=== PATIENT | female | born 1945 | race Caucasian/White ===

== ENCOUNTER → 2017-12-13 10:36 | Outpatient (CLI) | payer MEDICARE, SELFPAY ==
--- NOTE | 2017-12-13 10:39 | DI.RAD.S_ITS ---
PROCEDURE: XR ANKLE LT MIN 3V INDICATIONS: Left ankle pain/swelling TECHNIQUE: 3 views of the ankle were acquired. COMPARISON: None. 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 Near [id number] articulation is seen in this area, and there also is moderate hindfoot degenerative osteoarthritis best seen on the lateral view. There is a accessory ossicle or dominant old avulsion fragment is present at the inferior tip of the medial malleolus.. No suspicious bony lesions. Soft tissues: No tibiotalar joint effusion. Achilles tendon appears normal. 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 The avulsion fragment from the past inferior to the medial malleolus. A moderate degree of degenerative osteoarthritis is present at the tibiotalar joint and there is mild subluxation of the distal tibia medially across the talar dome likely due to ligamentous laxity. Dictated by: Rl Sommer M.D. on 12/13/2017 at 11:04 Approved by: Rl Sommer M.D. on 12/13/2017 at 11:06
== END ==
PROVIDERS: Family Provider Physician Assistant; PCP Physician Assistant; Visit Provider Physician Assistant
DX: M19.072 Primary osteoarthritis, left ankle and foot (principal); M25.572 Pain in left ankle and joints of left foot
CPT/HCPCS: 73610

== ENCOUNTER → 2018-01-22 10:23 | Outpatient (CLI) | payer MEDICARE, SELFPAY ==
[2018-01-22 12:39] LABS: Alanine Aminotransferase 24 IU/L (9-52); Albumin 4.3 g/dL (3.5-5.0); Albumin Globulin Ratio 1.2 (1.0-2.8); Alkaline Phosphatase 64 U/L (38-126); Aspartate Aminotransferase 30 IU/L (14-36); BUN Creatinine Ratio 28.3 (6-22); Bilirubin Total 0.4 mg/dL (0.2-1.3); Blood Urea Nitrogen 17 mg/dL (7-17); Calcium 10.1 mg/dL (8.4-10.2); Carbon Dioxide 33 mmol/L (22-32); Chloride 97 mmol/L (98-107); Estimated Glomerular Filt Rate > 60.0 mL/min (>60); Globulin 3.5 g/dL (1.7-4.1); Glucose 95 mg/dL (80-110); HEMOLYSIS < 15 (0-50); Potassium 4.1 mmol/L (3.4-5.1); Sodium 140 mmol/L (137-145); Total Protein 7.8 g/dL (6.3-8.2)
[2018-01-22 20:11] LABS: Creatinine Urine Random 38.9 mg/dL
[2018-01-22 20:16] LABS: Microalbumi Creatinin Ratio Ur 20.5 ug/mg CR (<30); Microalbumin Urine Random 0.8 mg/dL (0-1.6)
== END ==
PROVIDERS: Family Provider Physician Assistant; PCP Physician Assistant; Visit Provider Physician Assistant
DX: I10 Essential (primary) hypertension (principal); Z86.711 Personal history of pulmonary embolism
CPT/HCPCS: 36415; 80053; 82043; 82570

== ENCOUNTER → 2018-04-02 13:39 | Outpatient (CLI) | payer MEDICARE, SELFPAY ==
[2018-04-04 14:08] LABS: Fecal Immunochemical Test NOT DETECTED
== END ==
PROVIDERS: Family Provider Physician Assistant; PCP Physician Assistant; Visit Provider Physician Assistant
DX: Z12.11 Encounter for screening for malignant neoplasm of colon (principal)
CPT/HCPCS: 82274

== ENCOUNTER → 2018-10-25 08:37 | Outpatient (CLI) | payer MEDICARE, SELFPAY ==
--- NOTE | 2018-10-25 08:39 | DI.RAD.S_ITS ---
PROCEDURE: XR CHEST 2V INDICATIONS: cough TECHNIQUE: 2 views of the chest were acquired. COMPARISON: [facility], , CHEST 1 VIEW, 03/13/2017, 16:59. FINDINGS: Surgical changes and devices: None. Lungs and pleura: Lungs are clear. No pleural effusions or pneumothorax. Mediastinum: Mediastinal contours are normal. Heart size is normal. Bones and chest wall: No suspicious bony abnormalities. Soft tissues appear unremarkable. IMPRESSION: No acute cardiopulmonary disease process. Dictated by: Belen Colon MD, PhD on 10/25/2018 at 9:12 Approved by: Belen Colon MD, PhD on 10/25/2018 at 9:13
== END ==
PROVIDERS: Family Provider Physician Assistant; PCP Physician Assistant; Visit Provider Physician Assistant
DX: R05 Cough (principal)
CPT/HCPCS: 71046

== ENCOUNTER → 2018-12-11 08:29 | Outpatient (CLI) | payer MEDICARE, SELFPAY ==
--- NOTE | 2018-12-11 08:31 | DI.MG.S_ITS ---
BILATERAL DIGITAL SCREENING MAMMOGRAM 3D/2D WITH CAD: 12/11/2018 Comparison is made to exams dated: 10/06/2017 mammogram, 08/24/2016 mammogram, and 07/19/2015 mammogram - [facility]. The tissue of both breasts is heterogeneously dense. This may lower the sensitivity of mammography. Current study was also evaluated with a Computer Aided Detection (CAD) system. There are benign calcifications in both breasts. No significant masses, calcifications, or other findings are seen in either breast. There has been no significant interval change. IMPRESSION: There is no mammographic evidence of malignancy. A 1 year screening mammogram is recommended. This exam was interpreted at Station ID: [id number]. NOTE: For mammograms, a report in lay terms will be sent to the patient. Approximately 15% of breast malignancies will not be visualized mammographically. In the management of a palpable breast mass, a negative mammogram must not discourage biopsy of a clinically suspicious lesion. Electronically Signed By: Adán flannery/pari:12/11/2018 10:30:57 letter sent: Normal Exam ACR BI-RADS Category 2: Benign Finding(s) 3342F
== END ==
PROVIDERS: Family Provider Physician Assistant; PCP Physician Assistant; Visit Provider Physician Assistant
DX: Z12.31 Encounter for screening mammogram for malignant neoplasm of breast (principal)
CPT/HCPCS: 77063; 77067

== ENCOUNTER → 2019-01-21 13:11 | Outpatient (CLI) | payer MEDICARE, SELFPAY ==
--- NOTE | 2019-01-21 | DI.MRI.S_ITS ---
PROCEDURE: MR ANKLE LT WO CON INDICATIONS: LEFT ANKLE STRAIN TECHNIQUE: Noncontrast sagittal T1 spin echo and T2 fast spin echo with fat saturation, axial proton density fast spin echo and T2 fast spin echo with fat saturation, coronal T1 spin echo and T2 fast spin echo with fat saturation through the ankle/hindfoot. COMPARISON: None. FINDINGS: Image quality: Excellent. Bones and joints: No bone marrow contusions or fractures. No hindfoot coalitions. Severe tibiotalar joint degeneration with [id number] appearance, subchondral cystic change and sclerosis. Tibiotalar joint effusion. Medial structures: The posterior tibialis, flexor digitorum longus, and flexor hallucis longus tendons are intact. There is minimal fluid adjacent to the posterior tibialis tendon raising possibility of low-grade tenosynovitis. The posterior tibial neurovascular bundle appears normal within the tarsal tunnel, without extrinsic mass effect. The deep layer of the deltoid ligament not well seen probably indicating chronic sprain. The spring ligament components (superomedial calcaneonavicular, medioplantar oblique calcaneonavicular, and inferoplantar longitudinal ligaments) are intact. Lateral structures: Subcutaneous soft tissue edema overlying the lateral and medial malleolus. The anterior talofibular ligament is not visualized and likely ruptured. The calcaneofibular, and posterior talofibular ligaments appear intact. More superiorly, the anterior and posterior tibiofibular ligaments appear intact, as is the intermalleolar ligament. The tibiofibular syndesmosis is normal in width at 2 mm or less. The peroneus longus and brevis tendons demonstrate normal location and morphology. Adjacent bony peroneal tubercle and retrotrochlear prominence are normal in size. The sinus tarsi demonstrates normal fatty signal, without edema, fibrosis, or cyst formation. Visualized sinus tarsi components (cervical ligament, interosseous talocalcaneal ligament, roots of the inferior extensor retinaculum) appear normal. The calcaneonavicular and calcaneocuboid components of the bifurcate ligament appear intact. The dorsal calcaneocuboid ligament appears intact. Anterior structures: The tibialis anterior, extensor hallucis longus, and extensor digitorum longus tendons appear intact. The dorsal talonavicular ligament appears intact. Posterior and plantar structures: Achilles tendon is intact. Medial and lateral bands of the plantar fascia are of normal thickness. No abductor digiti quinti muscle atrophy to suggest Evans neuropathy. IMPRESSION: Rupture of the anterior talofibular ligament, technically age-indeterminate finding. Sprain of the deltoid ligament, with chronic appearance. Severe tibiotalar joint degeneration with associated effusion and full-thickness articular cartilage loss. Subchondral cystic changes and edema. Dictated by: Shaka Mayorga M.D. on 01/21/2019 at 14:23 Approved by: Shaka Mayorga M.D. on 01/21/2019 at 14:30
== END ==
PROVIDERS: Family Provider Physician Assistant; PCP Physician Assistant; Visit Provider Orthopaedic Surgery Foot and Ankle Surgery
DX: S93.422A Sprain of deltoid ligament of left ankle, initial encounter (principal); S93.492A Sprain of other ligament of left ankle, initial encounter; M19.072 Primary osteoarthritis, left ankle and foot; M25.472 Effusion, left ankle; X58.XXXA Exposure to other specified factors, initial encounter
CPT/HCPCS: 73721

== ENCOUNTER → 2019-06-17 09:24 | Outpatient (CLI) | payer MEDICARE, SELFPAY ==
[2019-06-17 10:39] LABS: Add Manual Diff / Slide Review NO; Basophils Absolute Auto 100 /uL (0-100); Eosinophils Absolute Auto 300 /uL (0-450); Eosinophils Percent Auto 3.4 % (2-4); Hematocrit 37.7 % (36-46); Hemoglobin 13.2 g/dL (12.0-16.0); Lymphocytes Absolute Auto 1800 /uL (1100-4500); Mean Corpuscular HGB Conc 34.9 % (30-36); Mean Corpuscular Hemoglobin 31.3 PG (26-34); Mean Corpuscular Volume 89.5 fL (80-100); Monocytes Absolute Auto 500 /uL (0-900); Monocytes Percent Auto 6.4 % (3-14); Neutrophils Absolute Auto 4900 /uL (1500-7000); Neutrophils Percent Auto 65.2 % (50-75); Platelet Count 233 X10^3/uL (150-400); Red Blood Cell Count 4.21 X10^6/uL (4.0-5.2); Red Cell Distribution Width 12.9 % (11.6-14.8); White Blood Cell Count 7.5 X10^3/uL (4.5-11.0)
[2019-06-17 10:53] LABS: Carbon Dioxide 26 mmol/L (22-32); Chloride 98 mmol/L (98-107); HEMOLYSIS < 15 (0-50); Potassium 3.9 mmol/L (3.4-5.1); Sodium 134 mmol/L (137-145)
== END ==
PROVIDERS: PCP Physician Assistant; Visit Provider Orthopaedic Surgery Foot and Ankle Surgery
DX: Z01.818 Encounter for other preprocedural examination (principal); M19.071 Primary osteoarthritis, right ankle and foot
CPT/HCPCS: 36415; 80051; 85025; 93005

== ENCOUNTER 2019-07-11 06:02 | Day surgery (SDC) | payer MEDICARE, SELFPAY ==
[2019-07-07 09:23] VITALS: BMI 19.5
[2019-07-11] VITALS (15 sets, daily range): BP systolic 107–170; BP diastolic 62–92; PULSE 82–93; RESP 13–20; TEMP 36.3–36.9; O2SAT 91–97; BMI 18.9
--- NOTE | 2019-07-11 | DI.RAD.S_ITS ---
PROCEDURE: XR ANKLE LT 2V INDICATIONS: LEFT ANKLE FUSION TECHNIQUE: 4 intraoperative fluoroscopic images of the ankle were acquired. COMPARISON: [facility], CR, XR ANKLE LT MIN 3V, 12/13/2017, 10:38. FINDINGS: ORIF of the distal tibia and talus. The plates and screws project in expected location. Prior proximal fibular shaft osteotomy. IMPRESSION: Satisfactory appearance of the left ankle joint ORIF. Dictated by: Jovany Logan M.D. on 07/11/2019 at 11:20 Approved by: Jovany Logan M.D. on 07/11/2019 at 11:23
[2019-07-11] MEDS: GABAPENTIN 300 MG CAPSULE PO (07:10)
[2019-07-11] MEDS: LACTATED RINGERS 1,000 ML 42 ML IV ×3 (07:10→12:38)
[2019-07-11] MEDS: ACETAMINOPHEN 325 MG TABLET 975 MG PO ×2 (07:10→20:23)
--- NOTE | 2019-07-11 07:21 | PM.PREOP ---
Pre-operative Note Interval Note History & Physical reviewed/Exam performed by Physician: Yes Changes to H&P: No
[2019-07-11] MEDS: CLINDAMYCIN 900 MG/50 ML PIGGYBACK 50 MG IV ×2 (07:48→16:20)
--- NOTE | 2019-07-11 07:48 | SUR.PREOP ---
Block start time [0735] . Monitoring initiated and maintained throughout procedure. Oxygen and medications given per anesthesiologist instructions. Patient remained stable throughout procedure, no adverse reactions noted. Block end time [0747].
--- NOTE | 2019-07-11 07:49 | SUR.PREOP ---
Block start time [0735] . Monitoring initiated and maintained throughout procedure. Patient remained stable throughout procedure, no adverse reactions noted. Block end time [0748].
--- NOTE | 2019-07-11 08:26 | SUR.OPER ---
Supine on padded OR bed, head on pillow, arms secured on padded arm boards at <90 degrees abduction, legs uncrossed, safety belt at thigh, tape over blanket over right leg. bump under left hip, bump under left leg
[2019-07-11] MEDS: BUPIVACAINE 0.25% W/ EPI 30 ML VIAL INJ (10:37)
--- NOTE | 2019-07-11 11:20 | P.OP_ITS ---
Operative Date/Time/Diagnoses Date of procedure: 07/11/19 Time of procedure: 08:20 Pre-op diagnosis: Arthritis ankle left M 19. 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 She had a partial fibula acne as part of the jaw reconstruction in 2017 she has failed conservative treatment with bracing and injections and rocker sole shoes. She has been indicated for an ankle fusion. The risks and benefits of the procedure have been discussed with the patient even opportunity to ask questions. The risks of surgery include but are not limited to infection, malunion, nonunion, persistence of pain, damage to nerves and blood vessels, posttraumatic arthritis, DVT, PE, cardiopulmonary complications and . The patient expressed a thorough understanding of the risks and benefits of surgery and has elected to proceed. Consent was signed in the office. The patient does have a remote history of a pulmonary embolism after a surgery. She took warfarin for a time but has not taken this in years. She states she was unable to give Lovenox injections to herself and would prefer an oral option. She has had a previous reaction to cephalosporins and therefore will have clindamycin as a preoperative antibiotic. She understands the recovery period will be 8-10 weeks of nonweightbearing followed by progressive weight-bearing. A surgical garment assembly supervisor, physician manufacturing assistant was utilized in this procedure and was crucial for participation in the positioning, retraction, exposure and hardware placement and closure during the procedure. The primary surgeon Dr. Gibson was present and participated in 100% of the procedure from positioning, exposure, hardware placement and closure. Surgeon: Marcie Gibson Nail Professional: Aviva Kenney Anesthesia Type: General, Peripheral nerve block and Local Operative Notes Findings: Severe degenerative changes left tibiotalar joint with eburnated bone distal tibia and talar dome Closure Type: primary Specimen(s): none sent Prosthetic devices, grafts, tissues, transplants, or devices: Arthrex anterior ankle fusion plate and screws. 6.7 cannulated screw Estimated Blood Loss (mL): 10 Blood products transfused: none Tourniquet time (min): 120 Procedure in detail: Patient was seen in the preoperative area the site of surgery was marked and informed consent confirmed. The patient underwent a regional block with the anesthesia team for postoperative pain control. The patient was then brought back to the operating room. Patient was positioned supine on the operative table all bony prominences were well padded. An SCD was placed on the contralateral lower extremity. A well-padded thigh tourniquet was placed on the operative extremity. And general anesthetic was administered. Ward catheter was placed for the duration of the surgery and removed prior to discontinuation of anesthesia. An ipsilateral thigh bump was placed. The left lower extremity was prepped and draped in the standard sterile fashion. A formal time-out procedure was performed confirming the patient's side and site of surgery and administration of appropriate preoperative antibiotics. All were in agreement. Informed consent was accounted for. Implants were in the room and accounted for. All were in agreement. Attention was turned to the patient's left lower extremity. The surgical site was inspected and the anterior incision was marked out on the leg centered over the ankle joint and extending approximately 15 cm in length 10 above the ankle joint line 5 below. Esmarch was used for exsanguination the tourniquet was elevated to 250 mm of mercury. The stayed elevated for a 120 minutes and then was released and not elevated again. Skin was incised superficially the tenotomy scissors were used for superficial dissection. The distal aspect of the incision the superficial peroneal nerve was identified and retracted laterally. Next the extensor retinaculum was incised with the deep knife. This was done over the EHL. The EHL and EDL interval was then explored the EDL was retracted laterally and the EHL medially with the neurovascular bundle. Dissection was taken down to bone and the [employer]'s were used for retraction. The tibiotalar joint was exposed and cleared off to the a talar neck and edge of the tn joint. Steinmann pins were placed into the tibia and talus and the ankle distractor was placed on to distract the joint. Curettes and osteotomes were used to debride the articular surfaces. These were found to be arthritic and eburnated. Once this was completed the lamina spreaders were placed to further open up the joint and continue with the debridement. Next the 4 0 oval bur was used to prepare the bony surfaces followed by irrigation and then a 3 0 drill to drill multiple drill holes in the tibial and talar surfaces to prepare the bone and a osteotome was then used to fish scale. Next attention was turned to the knee to obtain the autograft. Gerdy's tubercle and the tibial tubercle were marked out on the left proximal tibia and an incision made between these areas. This was a 2 cm incision soft tissues were retracted. The anterior compartment fascia was incised and retracted posteriorly. A 6 mm osteotome was used to make a sq bone window. Large curette was then used to harvest the bone graft. An x-ray was used to confirm this was well away from the joint line intraoperatively. Once this was completed the bone window was replaced and the wound was closed in a layered fashion after irrigation. Local anesthetic was placed. The autograft was placed into a container and set aside on the back table. Attention then returned back to the ankle for the arthrodesis the autograft was placed along the talus and tibia to enhance the fusion. Following this the ankle was positioned into neutral dorsiflexion and slight external rotation with the 2nd toe aligned with the tibial crest this was pinned using a large K-wire and care was taken to bring the talus slightly anterior as this had been posterior subluxed in the patient previously. The positioning was checked on ltiplanar fluoroscopy and found to be appropriate. Next a Arthrex anterior plate was fit to the tibial talar surface. There was a anterior prominence of the distal tibia and this was shaved down using the osteotomes. The standard 4 hole anterior plate was too large for this patient to out a bur short talar neck therefore decision was made to utilize the 2 hole anterior plate. This fit very well on this patient's anatomy. Therefore the left side 2 hole plate was selected this was placed into the talus and tibia using the BB tacks. Next a nonlocking screw was placed through a talar hole followed by a locking screw. Next a nonlocking was screw was placed Ecentric clean the oblong hole the shaft to create compression. And prior to doing this the BB tacks were removed. The 5.5 lag screw was then placed through the plate. Next the nonlocking screw in the talar hole was replaced with a locking screw as this was loose. However there was something wrong with the locking mechanism of the plate into different locking screws and re- drilling with the locking guide were tried through this hole without the screws engaging the locking mechanism. Therefore this screw was abandoned and the decision was made to add a 6 7 cannulated lag screw for additional talar fixation. This was done through a stab incision medially and a 40 mm partially threaded cannulated screw was placed without difficulty. Next the rest of the plate was filled with locking screws in appropriate positions. Stability of the arthrodesis was excellent and final positioning was confirmed showing excellent apposition and neutral positioning of the tibiotalar fusion. There was no evidence of a subtalar penetration. The tourniquet was released and hemostasis was achieved. The a deep tissues and extensor retinaculum were closed with 0 Vicryl suture. Subcutaneous 2 0 suture was used for 0 suture Monocryl was used subcutaneously followed by 3 O nylon suture. A sterile dressing with Xeroform gauze Webril bulky Griffith dressing and a stirrup and posterior splint were placed on the leg. A Tegaderm and Xeroform dressing over skin closure with Vicryl and nylon sutures was placed for the proximal tibial b one graft site. The patient was woken from anesthesia and taken to the recovery room in good condition. There no immediate complications from this procedure. All counts were correct. Complications: none Post-operative Condition: stable Disposition: PACU Plan for aftercare: Patient will be admitted to the floor she will discharge home on postop day 1 or 2 when pain is controlled. Nonweightbearing left lower extremity. Elevate above the heart level. Follow-up in clinic in 1-2 weeks as scheduled For conversion to cast. Prescriptions are on the patient's chart. Patient will start oral Xarelto for DVT prophylaxis on postoperative day 1. She will have 2 doses of clindamycin postoperatively while in the hospital.
--- NOTE | 2019-07-11 11:35 | SUR.PHASEI ---
Report recived from Piper Moulton RN and then gave her the pt. and so she received report from me again.
[2019-07-11] MEDS: KETOROLAC 30 MG/ML VIAL IV ×2 (12:44→18:26)
--- NOTE | 2019-07-11 14:22 | PT.IIE ---
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) DDD (degenerative disc disease), lumbar (Chronic Unknown) Essential hypertension (Chronic 10/12/10) Gastroesophageal reflux disease (Chronic 06/24/15) History of pulmonary embolus (PE) (Resolved) Hx of pulmonary embolus (Resolved 03/2017) Hypertension (Chronic Unknown) Irritable bowel syndrome (Chronic Unknown) Low back pain (Chronic Unknown) Squamous cell carcinoma of mandible (Resolved) Physical Therapy Inpatient Evaluation/Re-Eval M1 PT/OT-IP Prior Functional Status Start: 07/11/19 15:36 Freq: NEEDED Status: Active Protocol: Document 07/11/19 14:22 AB (Rec: 07/11/19 15:55 AB [id number]) Medical Review Prior Functional Status Medical History Reviewed Yes Communication able to make needs known Mobility and Gait pt stated that she is independent with all mobilities and ambulation without AD Social History Household Members spouse Living Arrangements House Number of Floors (Floors) Two Floors Number of Stairs To Enter/Railing? pt stays on main level of the house has no steps to enter Home Environment Standard Height Toilet,High Toilet,Walk in Shower,Built-In Shower Seat Home Equipment Front Wheel Walker,Straight Cane,Crutches,Hand Held Shower Employment Status Retired Additional Social History Comment pt has a knee scooter, adjustable bed M2 PT-IP Current Condition Start: 07/11/19 15:36 Freq: NEEDED Status: Active Protocol: Document 07/11/19 14:22 AB (Rec: 07/11/19 15:55 AB [id number]) Physical Therapy Current Condition Current Condition Evaluation Date 07/11/19 Treatment Diagnosis s/p L ankle arthrodesis w/L prox tibia bone graft; difficulty in walking Onset Date 07/11/2019 Precautions Brace LLE on soft cast Weight Bearing Status Weight Bearing Status Non-Weight Bearing Allowed Weight Bearing Amount (enter % LLE NWB or #) (%) M3 PT-IP Subjective Start: 07/11/19 15:36 Freq: NEEDED Status: Active Protocol: Document 07/11/19 14:22 AB (Rec: 07/11/19 15:55 AB [id number]) Subjective Physical Therapy Visit Type Type Initial Evaluation Visit Start Time 14:22 Visit Stop Time 15:12 Total Visit Minutes 50 Number of SOCIAL ECONOMIST Visits 0 Physical Therapy Visit Comments Patient Comments Pt agreeable to do PT Therapy Pain Assessment Pain Present Pain Present Denied Pain M4 PT-IP Mobility and Gait Start: 07/11/19 15:36 Freq: NEEDED Status: Active Protocol: Document 07/11/19 14:22 AB (Rec: 07/11/19 15:55 AB [id number]) PT-Bed Mobility Assessment Supine to Sit Supine to Sit Standby Assistance Scooting Scooting to Edge of Bed Standby Assistance PT-Transfer Assessment Sit to and From Stand Sit to and from Stand Contact Guard Assistance,1 Person Assistance,Use of Upper Extremities Equipment Transfer Assistive Device Gait Belt,Front Wheeled Walker Orthotic/Prosthetic Devices or Brace: No Transfers Transfer Destination Toilet Transfer Technique ambulated using FWW Transfer Ability Level of Assist Contact Guard Assistance, Minimal Assistance,1 Person Assistance,Use of Upper Extremities Comments Mobility Comments BP: 144/84 pt requested to use the toilet. completed supine to sit SBA. c/o feeling oozy. BP: 166/98. completed sit to stand CGA. pt ambulated to the toilet using FWW NWB LLE CGA to min A ~ 15 ft. required cues for techniques and to maintain NWB on LLE. completed sit to stand from the toilet CGA and ambulated to the sink using FWW CGA to min A. pt was able to maintain standing leaning against the counter NWB LLE while completing handwasing. instructed pt to ambulate to the chair and completed using FWW CGA to min A. positioned pt on the chair. call light and table placed within reach. asked pt to have her spouse bring her knee scooter tomorrow for training and agreed. Gait Assessment Gait Gait Assistance Required: Contact Guard Assist,Minimum Assistance Distance (Feet) 15 Able to Maintain Weight Bearing Status Yes During Gait Assistive Devices Assistive Device Gait Belt,Front Wheeled Walker Orthotic/Prosthetic Devices or Brace: Yes Factors Limiting Gait Function Factors Limiting Gait Function Decreased Activity Tolerance, Decreased Strength,Limited Range of Motion,Poor Balance Comments Gait Comments pls refer to mobility section for details PT-Balance Assessment Sitting Balance and Reactions Static Sitting Balance Ability Good Dynamic Sitting Balance Ability Good Standing Balance and Reactions Static Standing Balance Ability Fair Dynamic Standing Balance Ability Fair Device Used FWW M5 PT-IP Objective Assessments Start: 07/11/19 15:36 Freq: NEEDED Status: Active Protocol: Document 07/11/19 14:22 AB (Rec: 07/11/19 15:55 AB [id number]) Orientation Orientation/Cognition Level of Alertness Alert Orientation Name,Age,Birthday,Place, Situation Language Function Ability No Deficits Noted Safety Awareness Understands Safety Issues Memory Description No Deficits Noted Gross Range of Motion Lower Extremity ROM Impairments L ankle on soft cast and ROM not tested Strength Lower Extremity Strength Hip 4-/5 Knee 4-/5 Comments Strength Comments L ankle not tested Coordination Assessment Gross Coordination Gross Coordination WNL Sensation Assessment Sensation Gross Sensation Left LE Impaired Sensation Description Numbness Muscle Tone Muscle Tone WNL Yes M6 PT-IP Treatment Start: 07/11/19 15:36 Freq: NEEDED Status: Active Protocol: Document 07/11/19 14:22 AB (Rec: 07/11/19 15:55 AB [id number]) Physical Therapy Treatment Education Education Provided Precautions,Weight Bearing Status,Safety M7 PT-IP Assessment and Plan Start: 07/11/19 15:36 Freq: NEEDED Status: Active Protocol: Document 07/11/19 14:22 AB (Rec: 07/11/19 15:55 AB [id number]) PT Summary Assessment and Plan Potential Rehabilitation Potential Good Status of Condition at Evaluation Stable Summary Impairments Pain,ROM,Strength,Balance, Coordination,Sensation,Tone, Cognition,Bed Mobility, Transfers,Gait,Activity Tolerance Assessment Summary pt requiring CGA to min A with mobility using FWW. will assess safety with use of knee scooter tomorrow when family brings pt's knee scooter in. informed pt regarding possible use of w/c for long distance mobility and agreed. pt will have her spouse to assist her at home. Goals Bed Mobility Goal Independent Transfer Goal Independent,Front Wheeled Walker Gait Goal Independent,Front Wheel Walker Gait Distance 50 Other Goals Mod I with use of knee scooter ~ 100 ft Days to Meet Goals 5 Frequency of Treatment Frequency Of Treatment Twice a Day Treatment Plan Physical Therapy Treatment Plan Bed Mobility Training,Transfer Training,Gait Training, Therapeutic Exercise,Balance Retraining,Post Op Education, Discharge Planning,Hot or Cold Pack,Neuromuscular Re-ed, Coordination Retraining,Manual Therapy Other Recommendations and Next Treatment ambulation using FWW/knee Focus scooter; caregiver training when appropriate Recommendations To Nursing Amount of Assist Needed 1 Person Assist Discharge Recommendations PT Discharge Recommendations Home with Assistance, Outpatient PT Transportation Needs at Discharge Private Vehicle
--- NOTE | 2019-07-11 15:29 | PC.NURSE ---
Patient up to chair with PT. Patient denies pain at this time. IV infusing, site is CDI, leg is elevated, call light in reach. Patient denies further needs at this time.
--- NOTE | 2019-07-11 18:24 | P.PN_ITS ---
Subjective Subjective Date Patient Seen: 07/11/19 Time Patient Seen: 18:25 Interval history: Postop day 0 left ankle fusion Doing well sitting at bedside chair. Pain controlled. Starting to feel little bit of tingling around her toes. Exam Vital Signs (past 8 hours): - 07/11/19 10:48 07/11/19 10:53 07/11/19 10:54 Temperature 97.8 F 97.8 F Pulse Rate 83 82 83 Respiratory Rate 16 18 16 Blood Pressure 108/68 107/66 108/68 Pulse Oximetry 94 92 94 07/11/19 10:58 07/11/19 11:03 07/11/19 11:11 Temperature Pulse Rate 83 85 84 Respiratory Rate 20 14 20 Blood Pressure 112/70 112/70 114/72 Pulse Oximetry 91 91 91 07/11/19 11:22 07/11/19 11:36 07/11/19 11:48 Temperature 98.1 F 98.0 F Pulse Rate 84 85 86 Respiratory Rate 17 20 13 Blood Pressure 111/62 122/72 135/76 Pulse Oximetry 93 92 91 07/11/19 12:20 07/11/19 12:40 07/11/19 13:40 Temperature 98.5 F 98.5 F 98.0 F Pulse Rate 85 93 H 85 Respiratory Rate 14 14 Blood Pressure 128/66 136/67 141/74 H Pulse Oximetry 94 93 95 07/11/19 14:40 Temperature Pulse Rate 93 H Respiratory Rate Blood Pressure 156/92 H Pulse Oximetry 97 Oxygen Delivery Method Room Air Oxygen Flow Rate 0 Narrative Exam Narrative: Left lower extremity splint in place. Toes warm and well perfused. Does endorse some sensation with touching her toes today. Not wiggling them yet. Assessment & Plan Post-op Postoperative Procedures: Procedures Operation Date: 07/11/19 07:45 Actual Procedures Side Surgeon Ankle Fusion Left Marcie Gibson MD Postop day 0 left ankle fusion. Will elevate above the heart level to help with pain and swelling Plan nonweightbearing left lower extremity. Patient has walker and a knee scooter at home. Will finish 2 doses postop antibiotics Will start DVT prophylaxis with Xarelto on postop day 1.--prescription for Xarelto is on chart.--will use SCDs while in the hospital Had a block for pain control Is getting scheduled IV Toradol. Will have a few days of oral Toradol for prescription at discharge.--prescription is on chart. Patient given instr uctions not to take other anti-inflammatories while taking the Toradol -pain medication prescription for oxycodone on chart Prescription for Zofran on chart Will follow up in [facility] with Dr. Gibson as scheduled Plan discharge Sunday morning postop day 1 as long as pain is controlled. Did discuss this can be variable with the block wearing off. Patient instructed to take some pain medication prior to block wearing off to help ease this transition.-discussed vitamin D and calcium to help with bone healing. Quality VTE Deep Vein Thrombosis/Pulmonary Embolism Present on Admission: No
[2019-07-11] MEDS: DOCUSATE 100 MG CAPSULE PO (20:23)
[2019-07-11] MEDS: carvediloL 25 MG TABLET PO (20:23)
[2019-07-12] MEDS: CLINDAMYCIN 900 MG/50 ML PIGGYBACK 50 MG IV (00:32)
[2019-07-12] MEDS: KETOROLAC 30 MG/ML VIAL IV ×2 (00:33→05:43)
[2019-07-12 00:50] VITALS: BP 140/83; PULSE 65; RESP 16; TEMP 36.5; O2SAT 93
[2019-07-12] MEDS: ONDANSETRON 4 MG ODT PO (01:01)
[2019-07-12 04:05] VITALS: BP 130/75; PULSE 68; RESP 16; TEMP 36.7; O2SAT 95
[2019-07-12] MEDS: MAG HYDROX/ALUM/SIMETH 30 ML UDC PO (05:37)
[2019-07-12 07:30] VITALS: BP 139/86; PULSE 65; RESP 16; TEMP 36.7; O2SAT 95
--- NOTE | 2019-07-12 08:29 | PM.PNPO.1 ---
Subjective Subjective Date Patient Seen: 07/12/19 Time Patient Seen: 08:30 Interval history: She is doing great. 0 pain. She has been up and ambulating independently. Exam Vital Signs (past 8 hours): - 07/12/19 00:50 07/12/19 04:05 Temperature 97.7 F 98.0 F Pulse Rate 65 68 Respiratory Rate 16 16 Blood Pressure 140/83 130/75 Pulse Oximetry 93 95 Oxygen Delivery Method Room Air Oxygen Flow Rate 0 Const Orientation: alert and oriented x3 Extrem Other: Left leg splint intact. Intact sensation and good capillary refill in toes. He has a wiggles toes. Assessment & Plan Post-op Postoperative Procedures: Procedures Operation Date: 07/11/19 07:45 Actual Procedures Side Surgeon p Ankle Fusion Left Marcie Gibson MD she is doing very well. Discharged home today. I changed her prescription to tramadol as oxycodone makes her nauseated. Quality VTE Deep Vein Thrombosis/Pulmonary Embolism Present on Admission: No
[2019-07-12] MEDS: ACETAMINOPHEN 325 MG TABLET 975 MG PO (09:02)
[2019-07-12] MEDS: DOCUSATE 100 MG CAPSULE PO (09:02)
[2019-07-12] MEDS: RIVAROXABAN 10 MG TABLET PO (09:03)
[2019-07-12] MEDS: carvediloL 25 MG TABLET PO (09:05)
[2019-07-12] MEDS: AMLODIPINE 5 MG TABLET PO (09:05)
[2019-07-12] MEDS: LOSARTAN 50 MG TABLET PO (09:05)
--- NOTE | 2019-07-12 09:16 | PT.IPTN ---
Current Diagnoses Primary osteoarthritis, unspecified ankle and foot (07/11/19) Surgery Performed Operation Date: 07/11/19 07:45 Actual Procedures p Ankle Fusion(Left) - Marcie Gibson MD Physical Therapy Treatment Note M2 PT-IP Current Condition Start: 07/11/19 15:36 Freq: NEEDED Status: Active Protocol: Document 07/11/19 14:22 AB (Rec: 07/11/19 15:55 AB [id number]) Physical Therapy Current Condition Current Condition Evaluation Date 07/11/19 Treatment Diagnosis s/p L ankle arthrodesis w/L prox tibia bone graft; difficulty in walking Onset Date 07/11/2019 Precautions Brace LLE on soft cast Weight Bearing Status Weight Bearing Status Non-Weight Bearing Allowed Weight Bearing Amount (enter % LLE NWB or #) (%) M3 PT-IP Subjective Start: 07/11/19 15:36 Freq: NEEDED Status: Active Protocol: Document 07/12/19 09:00 KS (Rec: 07/12/19 09:31 KS [id number]) Subjective Physical Therapy Visit Type Type Treatment Note Visit Start Time 09:00 Visit Stop Time 09:16 Total Visit Minutes 16 Number of PHOTOGRAPHY INTERN Visits 1 Physical Therapy Visit Comments Patient Comments Pt agreeable to do PT Therapy Pain Assessment Pain Present Pain Present Denied Pain M4 PT-IP Mobility and Gait Start: 07/11/19 15:36 Freq: NEEDED Status: Active Protocol: Document 07/12/19 09:00 KS (Rec: 07/12/19 09:31 KS [id number]) PT-Bed Mobility Assessment Scooting Scooting to Edge of Bed Standby Assistance PT-Transfer Assessment Sit to and From Stand Sit to and from Stand Standby Assistance,Use of Upper Extremities Equipment Transfer Assistive Device Gait Belt,Front Wheeled Walker Orthotic/Prosthetic Devices or Brace: No Transfers Transfer Destination Bed Transfer Technique ambulated using FWW Transfer Ability Level of Assist Standby Assistance,Use of Upper Extremities Comments Mobility Comments Pt was exiting bathroom bathroom upon arrival from therapy. I for sit<>stand from toilet. Pt then ambulated w/ FWW to EOB. SBA for stand<>sit w/ FWW and NWB LLE. Discussed use of trike at home, pt did not bring in, but notes she was practicing use before surgery. Discussed safe use of trike and options for protecting incision site below L knee. SBA for sit<>stand w/ FWW and use of UE. Pt then ambulated ~50 ft w/ FWW and returned to sitting EOB SBA for stand<>sit w/ cues to bring FWW all the way to bed. Pt left sitting EOB, w/ all needs in reach and nursing notified of pt position. Gait Assessment Gait Gait Assistance Required: Standby Assistance,Contact Guard Assist,1 Person Assist Distance (Feet) 50 Able to Maintain Weight Bearing Status Yes During Gait Assistive Devices Assistive Device Gait Belt,Front Wheeled Walker Orthotic/Prosthetic Devices or Brace: Yes Factors Limiting Gait Function Factors Limiting Gait Function Decreased Activity Tolerance, Decreased Strength,Limited Range of Motion,Poor Balance Comments Gait Comments Pt ambulated ~50 ft w/ FWW and NWB LLE. Pt used correct technique w/ FWW using arms to lift body and swing leg forward. Pt noted that it was fatiguing, but she had covered more distance than needed while in her home. Pt states she feels confident in her ability to use trike at home and it will be easier. Prior to sitting, pt performed SLS on RLE w/ 1 finger on each side of FWW for balance x20 sec. PT-Balance Assessment Sitting Balance and Reactions Static Sitting Balance Ability Good Dynamic Sitting Balance Ability Good Standing Balance and Reactions Static Standing Balance Ability Fair Dynamic Standing Balance Ability Fair Device Used FWW M5 PT-IP Objective Assessments Start: 07/11/19 15:36 Freq: NEEDED Status: Active Protocol: Document 07/11/19 14:22 AB (Rec: 07/11/19 15:55 AB [id number]) Orientation Orientation/Cognition Level of Alertness Alert Orientation Name,Age,Birthday,Place, Situation Language Function Ability No Deficits Noted Safety Awareness Understands Safety Issues Memory Description No Deficits Noted Gross Range of Motion Lower Extremity ROM Impairments L ankle on soft cast and ROM not tested Strength Lower Extremity Strength Hip 4-/5 Knee 4-/5 Comments Strength Comments L ankle not tested Coordination Assessment Gross Coordination Gross Coordination WNL Sensation Assessment Sensation Gross Sensation Left LE Impaired Sensation Description Numbness Muscle Tone Muscle Tone WNL Yes M6 PT-IP Treatment Start: 07/11/19 15:36 Freq: NEEDED Status: Active Protocol: Document 07/12/19 09:00 KS (Rec: 07/12/19 09:31 KS [id number]) Physical Therapy Treatment Education Education Provided Precautions,Weight Bearing Status,Safety Other Treatments Other Treatment Performed Discussed safe use of trike at home, and options to add extra cushion to knee pad of trike if needed. Pt stated that if the trike is uncomfortable on incision, she will use FWW for short distances. M7 PT-IP Assessment and Plan Start: 07/11/19 15:36 Freq: NEEDED Status: Active Protocol: Document 07/12/19 09:00 KS (Rec: 07/12/19 09:31 KS [id number]) PT Summary Assessment and Plan Potential Rehabilitation Potential Good Status of Condition at Evaluation Stable Summary Impairments ROM,Strength,Balance, Coordination,Sensation,Tone, Cognition,Bed Mobility, Transfers,Gait,Activity Tolerance Assessment Summary Pt was SBA for all moblity and transfers. SBA to CGA for ambulating w/ FWW NWB LLE. No cues required for proper use of FWW while ambulating. Pt able to cover more than necessary distance that will need to be covered at home w/ FWW w/ appropriate level of fatigue and no loss of balance . Min cues to bring FWW all the way back to bed when sitting. Discussed how to safely use trike at home. Pt will also have assistance from spouse. Goals Bed Mobility Goal Independent Transfer Goal Independent,Front Wheeled Walker Gait Goal Independent,Front Wheel Walker Gait Distance 50 Other Goals Mod I with use of knee scooter ~ 100 ft Days to Meet Goals 5 Treatment Plan Physical Therapy Treatment Plan Bed Mobility Training,Transfer Training,Gait Training, Therapeutic Exercise,Balance Retraining,Post Op Education, Discharge Planning,Hot or Cold Pack,Neuromuscular Re-ed, Coordination Retraining,Manual Therapy Other Recommendations and Next Treatment ambulation using FWW/knee Focus scooter; caregiver training when appropriate Recommendations To Nursing Amount of Assist Needed 1 Person Assist Discharge Recommendations PT Discharge Recommendations Home with Assistance, Outpatient PT Transportation Needs at Discharge Private Vehicle
--- NOTE | 2019-07-12 11:29 | PC.NURSE ---
Discharge instructions and medications reviewed with patient and her . They states understanding and have no further questions or concerns at this time. IV removed intact. Dressings/splint to left lower extremity remain in place and intact. Wiggling toes, pink with +CMS. Patient has follow up appointment with Dr. Gibson scheduled. Patient instructed to call orthopedic's office with questions or concerns, or to seek emergency care for emergency. Patient escorted out via wheelchair with all belongings by TICKER INSTALLER to be discharged to home with her .
--- NOTE | 2019-07-12 14:11 | CM.DANOTE ---
DCP Brief Assessment Note Patient is a 74 year old female who was admitted as Outpt Bed on 07/11/19 for Left Ankle Surg. Pt has [employer] and [employer] for insurance and her PCP is Nemo BROWN. EMR was reviewed. Per MD, pt is medically stable to d/c home today after PT. Per PT, recommending safe d/c home and no concerns at this time. SW attempted to meet bedside with pt and per RN pt had been anxious to get home and provided transport home today with no concerns. Plan: Patient discharged home today via spouse POV and no SW needs at this time. MARGUERITE Harrington
== END 2019-07-12 10:40 | disposition home or self-care (01) ==
LOC: OR 06:06 → AC 06:11
PROVIDERS: PCP Physician Assistant; Visit Provider Orthopaedic Surgery Foot and Ankle Surgery
PROC: (CPT 27870; principal; 2019-07-11 07:45)
DX: M19.072 Primary osteoarthritis, left ankle and foot (principal); Z98.890 Other specified postprocedural states
CPT/HCPCS: 27870; 20900; 64450; 73600; 76000; 97116; 97161; 97535; J1100; J1885; J2405; J2704

== ENCOUNTER → 2020-01-12 15:37 | Outpatient (CLI) | payer MEDICARE, SELFPAY ==
[2019-07-11 11:50] VITALS: BMI 18.9
== END ==
PROVIDERS: PCP Registered Nurse Diabetes Educator; Referring Provider Physician Assistant; Visit Provider Physician Assistant
DX: I10 Essential (primary) hypertension (principal)

== ENCOUNTER → 2020-01-16 06:50 | Outpatient (CLI) | payer MEDICARE, SELFPAY ==
[2019-07-11 11:50] VITALS: BMI 18.9
[2020-01-16 08:32] LABS: Alanine Aminotransferase 15 IU/L (<35); Albumin 4.6 g/dL (3.5-5.0); Albumin Globulin Ratio 1.5 (1.0-2.8); Alkaline Phosphatase 70 U/L (38-126); Aspartate Aminotransferase 27 IU/L (14-36); BUN Creatinine Ratio 34.7 (6-22); Bilirubin Total 0.7 mg/dL (0.2-1.3); Blood Urea Nitrogen 17 mg/dL (7-17); Calcium 10.3 mg/dL (8.4-10.2); Carbon Dioxide 27 mmol/L (22-32); Chloride 102 mmol/L (98-107); Estimated Glomerular Filt Rate > 60.0 mL/min (>60); Globulin 3.1 g/dL (1.7-4.1); Glucose 97 mg/dL (80-110); HEMOLYSIS < 15 (0-50); Potassium 4.3 mmol/L (3.4-5.1); Sodium 136 mmol/L (137-145); Total Protein 7.7 g/dL (6.3-8.2)
[2020-01-16 08:35] LABS: Creatinine Urine Random 23.6 mg/dL
[2020-01-16 08:39] LABS: Microalbumi Creatinin Ratio Ur 97.4 ug/mg CR (<30); Microalbumin Urine Random 2.3 mg/dL (0-1.6)
== END ==
PROVIDERS: PCP Registered Nurse Diabetes Educator; Referring Provider Physician Assistant; Visit Provider Physician Assistant
DX: I10 Essential (primary) hypertension (principal)
CPT/HCPCS: 36415; 80053; 82043; 82570

== ENCOUNTER → 2020-01-29 16:42 | Outpatient (CLI) | payer MEDICARE, SELFPAY ==
[2019-07-11 11:50] VITALS: BMI 18.9
== END ==
PROVIDERS: PCP Registered Nurse Diabetes Educator; Visit Provider Registered Nurse Diabetes Educator
DX: R30.0 Dysuria (principal)
CPT/HCPCS: 87077; 87086; 87186

== ENCOUNTER → 2020-02-11 11:40 | Outpatient (CLI) | payer MEDICARE, SELFPAY ==
[2019-07-11 11:50] VITALS: BMI 18.9
--- NOTE | 2020-02-11 12:00 | DI.MG.S_ITS ---
Patient Name: CHARLI HALEY date: 1945 Sex: F Attending Physician: Mika Indications: Date: 02/11/2020 11:54 At the request of: IZABELLA HAINES Procedure: MM screening mammo BI BILATERAL DIGITAL SCREENING MAMMOGRAM 3D/2D WITH CAD: 02/11/2020 CLINICAL: Routine screening. Comparison is made to exams dated: 12/11/2018 mammogram, 10/06/2017 mammogram, and 08/24/2016 mammogram - [facility]. The tissue of both breasts is heterogeneously dense. This may lower the sensitivity of mammography. Current study was also evaluated with a Computer Aided Detection (CAD) system. There are benign calcifications in both breasts. There also are benign vascular calcifications in both breasts. No significant masses, calcifications, or other findings are seen in either breast. There has been no significant interval change. IMPRESSION: BENIGN There is no mammographic evidence of malignancy. A 1 year screening mammogram is recommended. This exam was interpreted at Station ID: [id number]. NOTE: For mammograms, a report in lay terms will be sent to the patient. Approximately 15% of breast malignancies will not be visualized mammographically. In the management of a palpable breast mass, a negative mammogram must not discourage biopsy of a clinically suspicious lesion. Electronically Signed By: Radha powell/pari:02/11/2020 12:31:37 letter sent: Normal Exam ACR BI-RADS Category 2: Benign Finding(s) 3342F Continued Report - Page 2 of 2 Patient Name: CHARLI HALEY date: 1945 Sex: F Attending Physician: Mika Indications: Date: 02/11/2020 11:54 At the request of: IZABELLA HAINES Procedure: MM screening mammo BI
== END ==
PROVIDERS: PCP Registered Nurse Diabetes Educator; Referring Provider Registered Nurse Diabetes Educator; Visit Provider Registered Nurse Diabetes Educator
DX: Z12.31 Encounter for screening mammogram for malignant neoplasm of breast (principal)
CPT/HCPCS: 77063; 77067

== ENCOUNTER → 2020-02-12 09:15 | Outpatient (CLI) | payer MEDICARE, SELFPAY ==
[2019-07-11 11:50] VITALS: BMI 18.9
== END ==
PROVIDERS: PCP Registered Nurse Diabetes Educator; Visit Provider Registered Nurse Diabetes Educator
DX: R39.15 Urgency of urination (principal)
CPT/HCPCS: 87077; 87086; 87186

== ENCOUNTER → 2020-04-06 08:19 | Outpatient (CLI) | payer MEDICARE, SELFPAY ==
[2019-07-11 11:50] VITALS: BMI 18.9
[2020-04-07 16:08] LABS: Fecal Immunochemical Test Negative (Negative)
== END ==
PROVIDERS: PCP Registered Nurse Diabetes Educator; Referring Provider Registered Nurse Diabetes Educator; Visit Provider Registered Nurse Diabetes Educator
DX: Z00.00 Encounter for general adult medical examination without abnormal findings (principal)
CPT/HCPCS: 82274

== ENCOUNTER → 2021-01-28 07:01 | Outpatient (CLI) | payer MEDICARE, SELFPAY ==
[2019-07-11 11:50] VITALS: BMI 18.9
[2021-01-28 08:43] LABS: Hematocrit 39.8 % (36-46); Hemoglobin 13.4 g/dL (12.0-16.0); Mean Corpuscular HGB Conc 33.6 % (30-36); Mean Corpuscular Volume 92.2 fL (80-100); Platelet Count 228 X10^3/uL (150-400); Red Blood Cell Count 4.32 X10^6/uL (4.0-5.2); Red Cell Distribution Width 13.3 % (11.6-14.8); White Blood Cell Count 5.1 X10^3/uL (4.5-11.0)
[2021-01-28 08:56] LABS: RBC Morphology Normal Morphology
[2021-01-28 09:01] LABS: Alanine Aminotransferase 13 IU/L (<35); Albumin 4.4 g/dL (3.5-5.0); Albumin Globulin Ratio 1.4 (1.0-2.8); Alkaline Phosphatase 60 U/L (38-126); Aspartate Aminotransferase 26 IU/L (14-36); BUN Creatinine Ratio 30.4 (6-22); Bilirubin Total 0.7 mg/dL (0.2-1.3); Blood Urea Nitrogen 17 mg/dL (7-17); Calcium 9.8 mg/dL (8.4-10.2); Carbon Dioxide 28 mmol/L (22-32); Chloride 101 mmol/L (98-107); Cholesterol 212 mg/dL (140-199); Estimated Glomerular Filt Rate > 60.0 mL/min (>60); Globulin 3.1 g/dL (1.7-4.1); Glucose 97 mg/dL (80-110); HDL Cholesterol 87 mg/dL (40-60); HEMOLYSIS < 15 (0-50); LDL Cholesterol Calculated 114 mg/dL (<100); Potassium 4.4 mmol/L (3.4-5.1); Sodium 137 mmol/L (137-145); Total Protein 7.5 g/dL (6.3-8.2); Triglycerides 54 mg/dL (35-150)
[2021-01-28 09:13] LABS: Neutrophils Absolute Manual 3060 /uL (3000-5900); Total Cells Counted 100
[2021-01-28 10:06] LABS: Creatinine Urine Random 40.2 mg/dL
[2021-01-28 10:09] LABS: Microalbumi Creatinin Ratio Ur 32.3 ug/mg CR (<30); Microalbumin Urine Random 1.3 mg/dL (0-1.6)
== END ==
PROVIDERS: PCP Registered Nurse Diabetes Educator; Referring Provider Registered Nurse Diabetes Educator; Visit Provider Registered Nurse Diabetes Educator
DX: I10 Essential (primary) hypertension (principal)
CPT/HCPCS: 36415; 80053; 80061; 82043; 82570; 85025

== ENCOUNTER → 2021-02-01 08:36 | Outpatient (CLI) | payer MEDICARE, SELFPAY ==
[2019-07-11 11:50] VITALS: BMI 18.9
[2021-02-02 09:36] LABS: Fecal Immunochemical Test Negative (Negative)
== END ==
PROVIDERS: PCP Registered Nurse Diabetes Educator; Referring Provider Registered Nurse Diabetes Educator; Visit Provider Registered Nurse Diabetes Educator
DX: Z11.3 Encounter for screening for infections with a predominantly sexual mode of transmission (principal)
CPT/HCPCS: 82274

== ENCOUNTER → 2021-04-28 07:20 | Outpatient (CLI) | payer MEDICARE, SELFPAY ==
[2019-07-11 11:50] VITALS: BMI 18.9
[2021-04-28 08:23] LABS: Add Manual Diff / Slide Review NO; Basophils Absolute Auto 0 /uL (0-100); Basophils Percent Auto 0.8 % (0-2); Eosinophils Absolute Auto 200 /uL (0-450); Eosinophils Percent Auto 3.3 % (2-4); Hematocrit 36.4 % (36-46); Hemoglobin 12.6 g/dL (12.0-16.0); Lymphocytes Absolute Auto 1600 /uL (1100-4500); Lymphocytes Percent Auto 28.4 % (25-40); Mean Corpuscular HGB Conc 34.7 % (30-36); Mean Corpuscular Hemoglobin 31.6 PG (26-34); Mean Corpuscular Volume 90.9 fL (80-100); Monocytes Absolute Auto 500 /uL (0-900); Monocytes Percent Auto 7.9 % (3-14); Neutrophils Absolute Auto 3400 /uL (1500-7000); Neutrophils Percent Auto 59.6 % (50-75); Platelet Count 224 X10^3/uL (150-400); Red Cell Distribution Width 12.6 % (11.6-14.8); White Blood Cell Count 5.7 X10^3/uL (4.5-11.0)
[2021-04-28 08:56] LABS: Microalbumin Urine Random 1.6 mg/dL (0-1.6)
[2021-04-28 08:59] LABS: Creatinine Urine Random 23.7 mg/dL; Microalbumi Creatinin Ratio Ur 67.5 ug/mg CR (<30)
== END ==
PROVIDERS: PCP Registered Nurse Diabetes Educator; Referring Provider Registered Nurse Diabetes Educator; Visit Provider Registered Nurse Diabetes Educator
DX: R79.89 Other specified abnormal findings of blood chemistry (principal); R80.9 Proteinuria, unspecified
CPT/HCPCS: 36415; 82043; 82570; 85025

== ENCOUNTER → 2021-05-17 11:37 | Outpatient (CLI) | payer MEDICARE, SELFPAY ==
[2019-07-11 11:50] VITALS: BMI 18.9
--- NOTE | 2021-05-17 11:39 | DI.MG.S_ITS ---
BILATERAL DIGITAL SCREENING MAMMOGRAM 3D/2D WITH CAD: 05/17/2021 CLINICAL: Routine screening. Comparison is made to exams dated: 02/11/2020 mammogram, 12/11/2018 mammogram, and 10/06/2017 mammogram - [facility]. The tissue of both breasts is heterogeneously dense. This may lower the sensitivity of mammography. Current study was also evaluated with a Computer Aided Detection (CAD) system. There are benign calcifications in both breasts. There also are benign vascular calcifications in both breasts. No significant masses, calcifications, or other findings are seen in either breast. There has been no significant interval change. IMPRESSION: BENIGN There is no mammographic evidence of malignancy. A 1 year screening mammogram is recommended. This exam was interpreted at Station ID: [id number]. NOTE: For mammograms, a report in lay terms will be sent to the patient. Approximately 15% of breast malignancies will not be visualized mammographically. In the management of a palpable breast mass, a negative mammogram must not discourage biopsy of a clinically suspicious lesion. Electronically Signed By: Adán flannery/pari:05/17/2021 13:25:12 letter sent: Normal Exam ACR BI-RADS Category 2: Benign Finding(s) 3342F
== END ==
PROVIDERS: PCP Registered Nurse Diabetes Educator; Referring Provider Registered Nurse Diabetes Educator; Visit Provider Registered Nurse Diabetes Educator
DX: Z12.31 Encounter for screening mammogram for malignant neoplasm of breast (principal)
CPT/HCPCS: 77063; 77067

== ENCOUNTER → 2021-06-21 14:04 | Outpatient (CLI) | payer MEDICARE, SELFPAY ==
[2019-07-11 11:50] VITALS: BMI 18.9
== END ==
PROVIDERS: PCP Registered Nurse Diabetes Educator; Referring Provider Registered Nurse Diabetes Educator; Visit Provider Registered Nurse Diabetes Educator
DX: Z78.0 Asymptomatic menopausal state (principal); Z13.820 Encounter for screening for osteoporosis; Z82.62 Family history of osteoporosis
CPT/HCPCS: 77080

== ENCOUNTER → 2021-07-21 07:08 | Outpatient (CLI) | payer MEDICARE, SELFPAY ==
[2019-07-11 11:50] VITALS: BMI 18.9
[2021-07-21 07:36] LABS: COVID19 -Nasal RAPID Negative (Negative)
== END ==
PROVIDERS: PCP Registered Nurse Diabetes Educator; Visit Provider Nurse Practitioner Family
DX: Z20.822 Contact with and (suspected) exposure to COVID-19 (principal)
CPT/HCPCS: 87635

== ENCOUNTER → 2021-08-12 06:55 | Outpatient (CLI) | payer MEDICARE, SELFPAY ==
[2019-07-11 11:50] VITALS: BMI 18.9
[2021-08-12 09:02] LABS: BUN Creatinine Ratio 29.1 (6-22); Blood Urea Nitrogen 16 mg/dL (7-17); Calcium 9.8 mg/dL (8.4-10.2); Carbon Dioxide 28 mmol/L (22-32); Chloride 103 mmol/L (98-107); Estimated Glomerular Filt Rate > 60.0 mL/min (>60); Glucose 104 mg/dL (80-110); HEMOLYSIS < 15 (0-50); Potassium 4.1 mmol/L (3.4-5.1); Sodium 138 mmol/L (137-145)
[2021-08-12 10:36] LABS: Creatinine Urine Random 54.9 mg/dL
[2021-08-12 10:38] LABS: Microalbumi Creatinin Ratio Ur 36.4 ug/mg CR (<30)
== END ==
PROVIDERS: PCP Registered Nurse Diabetes Educator; Referring Provider Registered Nurse Diabetes Educator; Visit Provider Registered Nurse Diabetes Educator
DX: I10 Essential (primary) hypertension (principal); R80.9 Proteinuria, unspecified
CPT/HCPCS: 36415; 80048; 82043; 82570

== ENCOUNTER → 2022-02-27 16:02 | Outpatient (CLI) | payer MEDICARE, SELFPAY ==
[2019-07-11 11:50] VITALS: BMI 18.9
--- NOTE | 2022-02-27 16:04 | DI.ECHO.S_ITS ---
[facility]+ [facility] +---------+ : : [address] : [place] [address] : : : : [id number] : : : : Phone: [phone]+ Echocardiogram Report + + :Name: CHARLI HALEY Study Date: 02/27/2022 Height: 60 in : :[facility] ReadingLocation: Weight: 100 lb : : Gender: Female BSA: 1.4 m2 : :: 1945 Age: 77 yrs BP: 184/93 mmHg: :Reason For Study: Murmur : :Ordering Physician: YANCY, : :IZABELLA Performed By: Shubham Reno : :Referring: IZABELLA HAINES : + + Interpretation Summary The ejection fraction is estimated to be 60-65%. There is mild tricuspid regurgitation. The right ventricular systolic pressure is estimated to be at least 30 mmHg based on an estimated right atrial pressure of 3 mm Hg. Procedure: A two-dimensional transthoracic echocardiogram with color flow and Doppler was performed. The study quality was technically adequate. There is no prior echocardiogram noted for this patient. Left Ventricle: The left ventricle is normal in size and wall thickness. Left ventricular systolic function is normal. The ejection fraction is estimated to be 60-65%. There are no focal wall motion abnormalities. Diastolic function could not be accurately assessed due to contradictory data. Right Ventricle: The right ventricle is normal in size and function. Atria: The left atrium is mildly dilated. Right atrial size is normal. The interatrial septum grossly appears intact with no obvious evidence for an atrial septal defect. Mitral Valve: The mitral valve leaflets appear mildly thickened, but open well. There is no mitral regurgitation noted. Aortic Valve: The aortic valve is normal in structure and function. No aortic regurgitation is present. Tricuspid Valve: The tricuspid valve is normal in structure and function. There is mild tricuspid regurgitation. The right ventricular systolic pressure is estimated to be at least 30 mmHg based on an estimated right atrial pressure of 3 mm Hg. Pulmonic Valve: The pulmonic valve is normal in structure and function. There is a trace or physiologic amount of pulmonic regurgitation. Great Vessels: The aortic root is normal size. The dimensions of the ascending aorta are normal. The IVC is of normal diameter and collapses greater than 50% with a sniff. This suggests a low right atrial pressure of 3 mm Hg. Pericardium/ Pleura There is no pericardial effusion. There is no pleural effusion. MMode/2D Measurements & Calculations LVIDd: 4.1 cm LVOT diam: 1.9 cm LVIDs: 2.8 cm Ao root diam: 2.7 cm FS: 31.7 % asc Aorta Diam: 2.9 cm IVSd: 0.70 cm LVPWd: 0.70 cm LV maynard. diameter/BSA (cm/m^2): 2.9 LV sys. diameter/BSA (cm/m^2): 2.0 LA dimension: 2.4 cm RA long axis: 3.9 cm LA A2 area: 18.9 cm2 LA A4 area: 18.5 cm2 LA length (vol): 5.4 cm LA vol: 55.1 ml LA vol index: 39.6 ml/m2 TAPSE_phl: 2.2 cm Doppler Measurements & Calculations Ao V2 max: 149.0 cm/sec LVOT Max Franklyn: 125.0 cm/sec Ao V2 mean: 104.0 cm/sec LV V1 max P.3 mmHg Ao max P.0 mmHg LV V1 VTI: 26.7 cm Ao mean P.0 mmHg ANABEL(I,D): 2.3 cm2 Ao V2 VTI: 32.5 cm ANABEL(V,D): 2.4 cm2 sev ratio: 0.82 ANABEL indexed to BSA (cm^2/m^2): 1.7 MV E max franklyn: 72.8 cm/sec TR max franklyn: 261.0 cm/sec MV A max franklyn: 88.8 cm/sec TR max P.2 mmHg MV E/A: 0.82 Med Peak E' Franklyn: 7.1 cm/sec E/E' med: 10.3 Lat Peak E' Franklyn: 9.2 cm/sec E/E' lat: 7.9 E/e' average: 9.1 MV dec time: 0.33 sec SV(LVOT): 75.7 ml AV VR_phl: 0.84 ANABEL(VTI)/BSA_phl: 1.7 MV P1/2t-pr_phl: 95.0 msec Reading Physician:01:33 PM
== END ==
PROVIDERS: PCP Registered Nurse Diabetes Educator; Referring Provider Registered Nurse Diabetes Educator; Visit Provider Registered Nurse Diabetes Educator
DX: R01.1 Cardiac murmur, unspecified (principal); I07.1 Rheumatic tricuspid insufficiency
CPT/HCPCS: 93306

== ENCOUNTER → 2022-04-11 10:01 | Outpatient (CLI) | payer MEDICARE, SELFPAY ==
[2019-07-11 11:50] VITALS: BMI 18.9
--- NOTE | 2022-04-11 | DI.CT.S_ITS ---
PROCEDURE: CT LE RT WO CON INDICATIONS: primary osteoarthritis, right ankle and foot TECHNIQUE: Noncontrast 1-1.5 mm axial sections acquired from above the tibiotalar joint to the bottom of the calcaneus, with coronal and sagittal reformats. COMPARISON: [facility], CT, LOWER EXTREMITY WO CONTRAST, 01/17/2017, 12:01. FINDINGS: Image quality: Excellent. Bones: Severe tibiotalar joint osteoarthritic changes are seen with near complete loss of joint space, extensive subchondral sclerosis and cystic changes and prominent marginal osteophyte formation. Underlying osteochondral injuries involving lateral weight-bearing portion of talar dome are likely present. Small osteochondral injuries involving adjacent distal tibial plafond is also noted. Moderate osteoarthritic changes are seen in rest of the right foot with joint space narrowing, subchondral sclerosis and small marginal osteophyte formation. No acute fracture or dislocation. No suspicious bony lesions. No CT evidence of metatarsal stress fractures. Soft tissues: There is small tibiotalar and subtalar joint effusion, no gross calcified loose bodies are seen. Achilles tendon is intact. Plantar fascia is intact. No abnormal soft tissue calcifications. No gross full-thickness extensor or flexor tendon ruptures. IMPRESSION: 1. 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 Osteochondral injuries are noted involving talar dome and adjacent distal tibial plafond. 2. Efba-to-khbsxhoa osteoarthritic changes in rest of the right foot. No acute fracture or dislocation. No suspicious bony lesion. 3. Small joint effusion, no loose bodies. No gross abnormal soft tissue calcifications. No full-thickness tendon rupture. Dictated by: Cedric Blevins M.D. on 04/11/2022 at 11:13 Approved by: Cedric Blevins M.D. on 04/11/2022 at 11:17
== END ==
PROVIDERS: PCP Registered Nurse Diabetes Educator; Referring Provider Orthopaedic Surgery Foot and Ankle Surgery; Visit Provider Orthopaedic Surgery Foot and Ankle Surgery
DX: M19.071 Primary osteoarthritis, right ankle and foot (principal); M25.474 Effusion, right foot
CPT/HCPCS: 73700

== ENCOUNTER → 2022-04-12 07:08 | Outpatient (CLI) | payer MEDICARE, SELFPAY ==
[2019-07-11 11:50] VITALS: BMI 18.9
[2022-04-12 08:00] LABS: Add Manual Diff / Slide Review NO; Basophils Absolute Auto 0 /uL (0-100); Basophils Percent Auto 0.5 % (0-2); Eosinophils Absolute Auto 200 /uL (0-450); Eosinophils Percent Auto 2.2 % (2-4); Hematocrit 35.5 % (36-46); Hemoglobin 12.2 g/dL (12.0-16.0); Lymphocytes Absolute Auto 1100 /uL (1100-4500); Lymphocytes Percent Auto 14.4 % (25-40); Mean Corpuscular HGB Conc 34.2 % (30-36); Mean Corpuscular Hemoglobin 30.7 PG (26-34); Mean Corpuscular Volume 89.7 fL (80-100); Monocytes Absolute Auto 400 /uL (0-900); Monocytes Percent Auto 5.3 % (3-14); Neutrophils Absolute Auto 6100 /uL (1500-7000); Neutrophils Percent Auto 77.6 % (50-75); Platelet Count 243 X10^3/uL (150-400); Red Blood Cell Count 3.96 X10^6/uL (4.0-5.2); Red Cell Distribution Width 13.1 % (11.6-14.8); White Blood Cell Count 7.9 X10^3/uL (4.5-11.0)
[2022-04-12 08:24] LABS: Alanine Aminotransferase 17 IU/L (<35); Albumin 4.1 g/dL (3.5-5.0); Albumin Globulin Ratio 1.1 (1.0-2.8); Alkaline Phosphatase 81 U/L (38-126); Aspartate Aminotransferase 23 IU/L (14-36); BUN Creatinine Ratio 33.3 (6-22); Bilirubin Total 0.6 mg/dL (0.2-1.3); Blood Urea Nitrogen 17 mg/dL (7-17); Calcium 9.6 mg/dL (8.4-10.2); Carbon Dioxide 23 mmol/L (22-32); Chloride 104 mmol/L (98-107); Estimated Glomerular Filt Rate > 60 mL/min (>60); Globulin 3.8 g/dL (1.7-4.1); Glucose 135 mg/dL (80-110); HEMOLYSIS 15 (0-50); Potassium 3.9 mmol/L (3.4-5.1); Sodium 139 mmol/L (137-145); Total Protein 7.9 g/dL (6.3-8.2)
[2022-04-12 10:35] LABS: Hemoglobin A1C% w Est Avg Glu 5.3 % (4.0-6.0)
== END ==
PROVIDERS: PCP Registered Nurse Diabetes Educator; Referring Provider Orthopaedic Surgery Foot and Ankle Surgery; Visit Provider Orthopaedic Surgery Foot and Ankle Surgery
DX: Z01.812 Encounter for preprocedural laboratory examination (principal); R73.9 Hyperglycemia, unspecified; Z01.818 Encounter for other preprocedural examination
CPT/HCPCS: 36415; 80053; 83036; 85025

== ENCOUNTER → 2022-06-01 | Outpatient (CLI) | payer MEDICARE, SELFPAY ==
[2022-04-13 10:41] VITALS: BMI 18.9
--- NOTE | 2022-06-01 13:32 | DI.MG.S_ITS ---
BILATERAL DIGITAL SCREENING MAMMOGRAM 3D/2D WITH CAD: 06/01/2022 CLINICAL: Routine screening. Comparison is made to exams dated: 05/17/2021 mammogram, 02/11/2020 mammogram, and 12/11/2018 mammogram - [facility]. Both breasts are heterogeneously dense, which may obscure small masses (category c / 51-75% glandular tissue). Current study was also evaluated with a Computer Aided Detection (CAD) system. There are benign calcifications in both breasts. There also are benign vascular calcifications in both breasts. No significant masses, calcifications, or other findings are seen in either breast. There has been no significant interval change. IMPRESSION: BENIGN There is no mammographic evidence of malignancy. A 1 year screening mammogram is recommended. Based on the Tyrer Cuzick model (a risk assessment model) the patient's lifetime risk is 3.5% and her 10 year risk is 0.0%. According to the ACR, ACS, and NCCN guidelines, an annual breast MRI exam along with mammogram is recommended if the patient's lifetime risk is 20% or greater. This exam was interpreted at Station ID: [id number]. NOTE: For mammograms, a report in lay terms will be sent to the patient. Approximately 15% of breast malignancies will not be visualized mammographically. In the management of a palpable breast mass, a negative mammogram must not discourage biopsy of a clinically suspicious lesion. Electronically Signed By: Srini Christianson M.D., jr/pari:06/01/2022 14:58:48 letter sent: Normal Exam ACR BI-RADS Category 2: Benign Finding(s) 3342F
== END ==
PROVIDERS: PCP Registered Nurse Diabetes Educator; Referring Provider Registered Nurse Diabetes Educator; Visit Provider Registered Nurse Diabetes Educator
DX: Z12.31 Encounter for screening mammogram for malignant neoplasm of breast (principal)
CPT/HCPCS: 77063; 77067

== ENCOUNTER → 2022-06-07 10:54 | Outpatient (CLI) | payer MEDICARE, SELFPAY ==
[2022-04-13 10:41] VITALS: BMI 18.9
[2022-06-07 11:36] LABS: COVID19 -Nasal RAPID Negative (Negative)
== END ==
PROVIDERS: PCP Registered Nurse Diabetes Educator; Referring Provider Orthopaedic Surgery Foot and Ankle Surgery; Visit Provider Orthopaedic Surgery Foot and Ankle Surgery
DX: Z20.822 Contact with and (suspected) exposure to COVID-19 (principal)
CPT/HCPCS: 87635; C9803

== ENCOUNTER 2022-06-09 06:26 | Day surgery (SDC) | payer MEDICARE, SELFPAY ==
[2022-04-13 10:41] VITALS: BMI 18.9
[2022-06-06 08:24] VITALS: BMI 19.1
[2022-06-09] VITALS (11 sets, daily range): BP systolic 112–180; BP diastolic 56–89; PULSE 22–89; RESP 16–24; TEMP 36.2–36.8; O2SAT 92–100; BMI 19.1
--- NOTE | 2022-06-09 | DI.RAD.S_ITS ---
PROCEDURE: XR ANKLE RT 2V INDICATIONS: TOTAL ANKLE TECHNIQUE: Multiple spot fluoroscopic images of the ankle. COMPARISON: [facility], CT, CT LE RT WO CON, 04/11/2022, 10:08. [facility], CR, XR ANKLE 3 VIEWS WEIGHT BEARING BILATERAL, 12/28/2021, 10:22. FINDINGS: Intraoperative spot fluoroscopic images demonstrate mortise joint arthrodesis with hardware components in expected positions. A medial distal tibial plate screw construct is present. IMPRESSION: Status post mortise joint arthrodesis with expected hardware positioning. Approved by: Bill Raygoza M.D. on 06/09/2022 at 13:12
[2022-06-09] MEDS: LACTATED RINGERS 1,000 ML 42 ML IV ×2 (06:44→08:45)
--- NOTE | 2022-06-09 07:22 | PM.PREOP ---
Pre-operative Note COVID-19 COVID-19 status: Negative Interval Note History & Physical reviewed/Exam performed by Physician: Yes Changes to H&P: No
--- NOTE | 2022-06-09 07:22 | SUR.OPER ---
Supine on padded OR bed, head on pillow, arms secured on padded arm boards at <90 degrees abduction, legs uncrossed, safety belt at thigh, tape over blanket over lower legs. Right left supported on bath blankets, which are secured with tape. Left leg secured with cloth tape with blanket to protect skin.
[2022-06-09] MEDS: CEFAZOLIN 2 GM/100 ML PREMIX 100 ML IV (08:10)
[2022-06-09] MEDS: BUPIVACAINE 0.5% W/ EPI (PF) 30 ML VIAL INJ (08:50)
--- NOTE | 2022-06-09 12:10 | SUR.PHASEI ---
1125: Handoff to MARYANNE Bustillos for rest break. 1145: Report received, will resume care.
--- NOTE | 2022-06-09 12:18 | SUR.PHASEI ---
Addendum entered by Anais Ang R.N. 06/09/22 12:19: Update given to spouse Original Note: 1218: Pt recovering well, A&Ox4, block to right leg effective, can bend knee, denies pain.
[2022-06-09] MEDS: ACETAMINOPHEN 325 MG TABLET PO (12:33)
--- NOTE | 2022-06-09 12:36 | SUR.PHASEII ---
1230: Pt ready for phase 2. Report given to Devaughn Bustillos with time allowed for questions. Will handoff care now.
--- NOTE | 2022-06-09 14:40 | PM.OP.1 ---
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 Total ankle arthroplasty right CPT code 59418 2. Gastroc recession right- 22849-52 3. Prophylactic treatment plating right tibia, medial malleolus CPT code 30829 Number 22 modifier Procedures performed with a 22 modifier due to the extremely small size of this patient's ankle taking the absolute smallest implants and required a gastroc recession and prophylactic plating of the medial malleolus--culminating in this surgery took longer than the typical total ankle arthroplasty and required meticulous care to technique given the small size of the patient's ankle and the exposure and hike careful use and placement of the implants and to avoid fracture a prominence. Same procedure as scheduled: Yes Indications: The patient is a 77-year-old female with end-stage arthritis of the right ankle. She has a contralateral ankle fusion. She has been indicated for a total ankle arthroplasty to allow a more normal gait preserved range of motion and treat her in stage arthritic condition. She has a tight gastroc and has been indicated for possible gastroc recession and associated ligament balancing prophylactic for fracture fixation along with her ankle arthroplasty. The risks and benefits of the procedure have been discussed with the patient and given the opportunity to ask questions. The risks of surgery include but are not limited to infection, fracture, malunion, nonunion, persistence of pain, damage to nerves and blood vessels, posttraumatic arthritis hardware, implant complication, need for additional procedures, DVT, PE, cardiopulmonary complications and . The patient expressed a thorough understanding of the risks and benefits of surgery and has elected to proceed. Consent was signed in the office. During the operation, the services of a physician surgical physician assistant were medically indicated and necessary to provide the exposure of the operative site for the surgical procedure and to maintain the limb in a proper position to carry out the operation safely and efficiently. Without a qualified senior sales assistant being present this would extended the operative procedure and made the procedure technically more difficult to perform. Surgeon: Marcie Gibson Business Systems Analyst: Amanda Saenz Anesthesia Type: General, Peripheral nerve block and Local Operative Notes Findings: End-stage arthritis varus pattern right ankle. Intraoperative the patient's ankle was extremely diminutive. She was sized for the smallest possibly a component skin even this left a thin medial malleolus less than 9 mm concerning for risk for stress fracture and therefore was indicated for prophylactic fixation with a medial antiglide plate. Additionally for the varus arthritis a deltoid peel was completed. Gastroc contracture on examination under anesthesia. This was treated with a gastroc recession Closure Type: primary Specimen(s): none sent Prosthetic devices, grafts, tissues, transplants, or devices: Lesly TalAris flat cut talar dome size 0 right Lesly Talaris tibia tray size 0 XL Polyethylene size 00x 9 mm right Synthes 5 hole 1/3 tubular plate 24 mm 3.5 cortical screw 28 mm 3.5 cortical screw Estimated Blood Loss (mL): 30 Blood products transfused: none Tourniquet time (min): 126 Procedure in detail: Patient was seen in the preoperative area and the site of surgery was marked informed consent confirmed. Final questions were answered. The patient was also seen by the anesthesiologist and a peripheral nerve block was placed for postoperative pain control. The patient was brought back to the operating room by the anesthesia team and positioned supine on operative table. All bony problems well padded. A well-padded thigh tourniquet was placed on the upper thigh. An ipsilateral thigh bump was placed. A bump was placed on the calf with a heel hang free. The operative lower extremity was then prepped and draped in the standard sterile fashion. A formal time-out procedure was performed confirming the patient site of surgery and administration of preoperative antibiotics which was 2 g of Ancef. Implants were in the room accounted for. All were in agreement. Attention was turned to the operative lower extremity an Esmarch bandage was used for exsanguination the tourniquet elevated the thigh to 250 mm of mercury. The initial nonsterile tourniquet fails and was not working and this was removed and a sterile tourniquet was placed and then elevated. Gastroc recession-- An examination under anesthesia was completed demonstrated a gastroc contracture with approximately 5? of dorsiflexion with the knee extended and 20? of dorsiflexion with the knee flexed therefore decision was made for a gastroc recession. The leg was bent in the posterior medial calf was exposed. A incision was marked approximately 15 cm above the heel posterior medially at the edge of the gastroc musculature. This was taken down through the skin subcutaneous tissue making a 3 cm incision. The gastroc fascia was encountered. A care was taken to protect the sural nerve. The fascia was exposed. It was released from medial to lateral while the ankle was in dorsiflexion creating a 2 cm lengthening once this was completed the wound was irrigated and closed in layered fashion with 4-0 Monocryl and 3-0 nylon suture. Postoperative examination demonstrated symmetric ankle dorsiflexion 20? in knee extension and knee flexion. Total ankle arthroplasty-- A standard anterior approach to the ankle was drawn out over the leg approximately 12 cm in length and 1 cm lateral to the tibial crest extended longitudinally bisecting the tibiotalar joint and talonavicular joint. This was taken down through the skin and subcutaneous tissues with care taken to isolate and protect the superficial peroneal nerve branch. Next the extensor retinaculum was opened and tagged with an 0 Vicryl for later repair. The EHL tendon sheath was opened and the EHL and neurovascular bundle were retracted laterally and the tibialis anterior was kept into its sheath and retracted medially. This brought us down directly on the anterior tibia. Dissection was taken all the way to the talonavicular joint to expose the talus. The capsule was divided and retracted. The joint demonstrated end-stage tibiotalar arthritis with large anterior distal tibial spurs and talar spurring. Overall size of the ankle was noted to be quite small. The Bovie cautery and elevators and scalpel were used to remove the periosteum along the anterior tibia and expose the joint. retractors were used to protect the EHL and neurovascular bundle. An osteotome was then used to remove the anterior distal tibial osteophytes and expose the tibiotalar joint line level at the dome of the plafond. At this point attention was turned to the tibial tubercle and a pin was placed in the tubercle with care to make this perpendicular to the shaft in line with osteotome placed and the ankle joint. Next the jig was placed in the 0 slot and then slid down to the level of the osteotome. The height was locked into place. Final adjustments were made for varus and valgus as well as rotation once this was appropriate these were locked in place and the final height of the resection was marked at [address] of note on the small patient distal seem theresa was brought back down to about a level 6 mm for the cut. The sizing block was then placed and a size 0 tibia was selected. Meticulous technique was done in positioning the sizing and cutting blocks as the patient was again very small and was on the very edges of being able to utilize the 0 size. This was able to be completed but it left to the medial malleolus less than 8 or 9 mm so decision was made for prophylactic plating of the medial malleolus of the tibia a to reduce the risk of a stress fracture in the postoperative time. Next a flat cut talar guide was placed and pinned this was checked on the lateral to make sure the resection was appropriate. Once this was appropriate this was pinned in place in the tibia and flat cut talus cuts were all made. The corners of the tibial cut were drilled and then the drill and osteotome was used for the corners and the drill and then oscillating saw the distal tibial resection. The tibia and talus were removed. The reciprocal saw was used to clean of the medial and lateral gutters on the talus and removed any remaining osteophytes. Talus was then sized. This was a 0. Next the tibial tray was pinned in place. Two drill holes were drilled and then the larger hole for the keel was drilled to the stop. The drill guide for the talus was also drilled. Trial was placed with an 8 mm poly and then upsized to a 9 for good stability. Final irrigation was completed. The final implants were opened. Talus was placed and malletted down. This was confirmed on the lateral and AP views with appropriate alignment bony contact. Next the tibia was placed in the standard fashion confirming appropriate alignment in the lateral while impacting. There was excellent bony contact. Once this was completed additional bone from the resection was grafted into the anterior keel location. Range of motion was checked. the foot was plantigrade. The ankle was stable to varus and valgus stress testing no significant laxity was noted. Prophylactic plating of the distal tibia. --- Because of the medial malleolus was left quite thin in less than 8 mm it was at risk for fracture in the postoperative. Therefore decision was made for prophylactic fixation of the tibia. Because of the diminutive size of the patient was felt to be safer with an anti glide plate then with a screw therefore the [employer] small frag set was opened and a 5 hole 1/3 tubular plate was positioned along the medial malleolus through the anterior incision and 2 screws were placed for an anti glide plate these were a cortical 28 and 24 mm screws. Final x-rays were taken AP, mortise and lateral images as well as dorsiflexion plantar flexion images. These were saved. Tourniquet was released. Hemostasis was achieved. Wound was irrigated capsule was closed with 0 Vicryl. Retinaculum was closed with 2-0 PDS. Subcutaneous tissue was closed with 4-0 Monocryl and skin with 3-0 nylon. Local anesthetic was infiltrated for postoperative pain control. Dressing was placed with Xeroform, gauze, Webril, bulky Griffith cotton and a posterior and U splint. The patient was woken from anesthesia and taken to recovery room in good condition. There no immediate complications with this procedure. Aftercare will be nonweightbearing on the lower extremity with strict elevation above the heart level. Start DVT prophylaxis with aspirin 325 mg b.i.d. on postop day 1. Complications: none Post-operative Condition: stable Disposition: PACU Plan for aftercare: Nonweightbearing. Start aspirin for DVT prophylaxis on postoperative day 1. Follow-up in 2 weeks in [facility].
== END 2022-06-09 13:30 | disposition home or self-care (01) ==
LOC: OR 06:28 → AC 06:29
PROVIDERS: PCP Registered Nurse Diabetes Educator; Referring Provider Registered Nurse Diabetes Educator; Visit Provider Orthopaedic Surgery Foot and Ankle Surgery
PROC: (CPT 27702; principal; 2022-06-09 07:45)
PROC: (CPT 27685; 2022-06-09 07:45)
DX: M19.071 Primary osteoarthritis, right ankle and foot (principal); M25.771 Osteophyte, right ankle; Z86.711 Personal history of pulmonary embolism; G89.18 Other acute postprocedural pain
CPT/HCPCS: 27702; 27687; 27745; 64445; 64447; 73600; 76000; J0690; J2250; J2405; J2704; J3010

== ENCOUNTER 2022-06-21 20:09 | Emergency (ER) | payer MEDICARE, SELFPAY ==
[2022-04-13 10:41] VITALS: BMI 18.9
[2022-06-21] VITALS (8 sets, daily range): BP systolic 154–187; BP diastolic 77–86; PULSE 75–88; RESP 17–24; TEMP 36.8; O2SAT 95–97; BMI 19.3
--- NOTE | 2022-06-21 20:29 | DI.RAD.S_ITS ---
PROCEDURE: XR CHEST 1V INDICATIONS: chest pain TECHNIQUE: One view of the chest was acquired. COMPARISON: [facility], CR, XR CHEST 2V, 10/25/2018, 8:43. FINDINGS: Surgical changes and devices: None. Lungs and pleura: There is bilateral apical pleural-parenchymal thickening redemonstrated likely representing scarring. Lungs are otherwise clear. No pleural effusions or pneumothorax. Mediastinum: Mediastinal contours appear normal. Heart size is normal. Bones and chest wall: No suspicious bony lesions. Overlying soft tissues appear unremarkable. IMPRESSION: 1. No acute cardiopulmonary disease. Dictated by: Humberto Newman M.D. on 06/21/2022 at 21:04 Approved by: Humberto Newman M.D. on 06/21/2022 at 21:05
--- NOTE | 2022-06-21 20:52 | DI.CT.S_ITS ---
PROCEDURE: CT ANGIO CHEST PE PROTOCOL INDICATIONS: Left chest pain TECHNIQUE: After the administration of intravenous contrast, 2 mm thick sections acquired from the pulmonary apices to the posterior costophrenic angles. 3-dimensional maximum intensity projection (MIP) coronal and sagittal reformats were then acquired through the thorax. For radiation dose reduction, the following was used: automated exposure control, adjustment of mA and/or kV according to patient size. COMPARISON: [facility], CR, XR CHEST 1V, 06/21/2022, 20:37. [facility], CT, PE STUDY (CTA CHEST), 03/13/2017, 19:53. FINDINGS: Image quality: Excellent. Pulmonary arteries: Pulmonary arteries are normal in size, and demonstrate no intraluminal filling defects to suggest central pulmonary embolism. Lower Neck: No lymphadenopathy by size criteria. Thyroid: Visualized thyroid demonstrates no discrete nodules. Axillae: No lymphadenopathy by size criteria. Chest Wall: Unremarkable. Bones: Visualized osseous structures demonstrate no suspicious lesions. Lungs and Airways: There are bilateral clustered small pulmonary nodules with a tree-in-bud distribution associated with mild bronchiectasis, bronchial wall thickening and mucous plugging, predominately within the right lower lobe and left upper lobe. Areas of peribronchial consolidation are also demonstrated within the left upper lobe including the lingula and a confluent region in the left apex associated with internal cavitation. The findings are consistent with an atypical infection. Bilateral geographic areas of mild indistinct ground-glass opacity also demonstrated bilaterally which may represent air trapping or mild pulmonary edema. The trachea and central airways are patent. Pleura: No pneumothorax or pleural effusions. Heart: Heart size is normal. No pericardial effusion. Thoracic Vessels: The thoracic aorta is normal in size. There is a 4 vessel aortic arch with separate origin of the left vertebral artery. Mediastinum and Sofía: There are new enlarged mediastinal lymph nodes including a leasing representative aortopulmonary node measuring up to 1.0 cm in short axis and a subcarinal node measuring approximately 1.2 cm in short axis. Esophagus: No wall thickening. No hiatal hernia. Abdomen: Visualized upper abdominal solid organs appear normal in the early arterial phase of enhancement. IMPRESSION: 1. No evidence of pulmonary embolism. 2. Bilateral clustered irregular indistinct nodules with a tree-in-bud appearance associated with mild bronchiectasis, bronchial wall thickening, and mucous plugging. Confluent areas of peribronchial consolidation are demonstrated within the left upper lobe. The constellation of findings are consistent with an atypical infection such as from MORRIS or fungal etiologies. 3. Mildly enlarged mediastinal lymph nodes are nonspecific but likely reactive. Dictated by: Humberto Newman M.D. on 06/21/2022 at 21:53 Approved by: Humberto Newman M.D. on 06/21/2022 at 22:04
--- NOTE | 2022-06-21 20:53 | ED_ITS ---
HPI - Chest Pain General Chief Complaint: Shortness of Breath/Dyspnea Stated Complaint: rt sided abdominal pain Time Seen by Provider: 06/21/22 20:46 Source: patient and family Mode of arrival: Ambulatory Limitations: no limitations History of Present Illness HPI narrative: Patient here with family, complains of reproducible left chest pain/below left breast that started about 1 or 2 hours ago. It is improving. It hurt with deep breath and movement. Patient states it feels like a blood clot in her lungs she had 6 years ago. She had oral surgery at that time and developed a blood clot 1 month later. Was on warfarin for 1 year and has discontinued afterwards and has been doing well since then. Patient is postop day 12 status post right ankle surgery that was done here. Patient states she has a cast and there has been no change in her calf or foot with any new discomfort. No history of DVT. Patient denies any dyspnea. No nausea or sweating. No recent exertional chest pain, denies any cardiac history. Patient was instructed to take daily aspirin after her ankle surgery. Denies any recent illness no cold congestion fever or chills. However has had ongoing cough Related Data Home Medications Medication Instructions Recorded Confirmed celecoxib 400 mg capsule 400 mg PO DAILY 06/21/22 06/21/22 tramadol 50 mg tablet 50 mg PO DAILY 06/21/22 06/21/22 Previous Rx's Medication Instructions Recorded amlodipine 5 mg tablet (Norvasc) 5 mg PO QDAY #90 tabs 08/08/21 carvedilol 6.25 mg tablet 6.25 mg PO BID #180 tabs 08/08/21 losartan 100 mg tablet 100 mg PO DAILY #90 tabs 08/08/21 lorazepam 0.5 mg tablet 0.5 mg PO QDAYP PRN anxiety #30 01/19/22 tabs levofloxacin 750 mg tablet 750 mg PO DAILY #4 tabs 06/21/22 Allergies Allergy/AdvReac Type Severity Reaction Status Date / Time amoxicillin AdvReac Severe Nausea, Verified 06/21/22 20:28 vomiting azithromycin AdvReac Severe Nausea, Verified 06/21/22 20:28 vomiting cefdinir AdvReac Severe Nausea, Verified 06/21/22 20:28 vomiting oxycodone AdvReac Severe Nausea, Verified 06/21/22 20:28 vomiting Narcotics AdvReac Severe Nausea, Uncoded 06/21/22 20:28 vomiting Review of Systems Review of Systems Narrative: GENERAL: negative chills, fatigue, malaise, fever, sweats. HEENT: negative sinus pain, ear pain, sore throat RESPIRATORY: negative dyspnea, cough, negative hemoptysis CARDIOVASCULAR: Positive chest pain, negative palpitations GASTROINTESTINAL: negative nausea, vomiting, abdominal pain : negative dysuria, frequency, hematuria MUSCULOSKELETAL: negative muscle or bony pain SKIN: negative rash, skin lesions NEUROLOGIC: negative weakness, numbness ROS Unobtainable: All systems reviewed & are unremarkable except as noted in HPI and below Patient History Medical History (Updated 06/21/22 @ 22:42 by Ace Pak MD) Anxiety Cancer of mandible (~01/2017) COVID-19 virus infection DDD (degenerative disc disease), lumbar (Unknown) Essential hypertension (10/12/10) Gastroesophageal reflux disease (06/24/15) History of oral cancer History of pulmonary embolus (PE) Hx of pulmonary embolus (03/2017) Hypertension (Unknown) Irritable bowel syndrome (Unknown) Low back pain (Unknown) Microalbuminuria Squamous cell carcinoma of mandible Surgical History (Updated 06/06/22 @ 08:34 by Sindy Lagos RN) History of mandibular surgery (02/2017) Hx of ankle fusion (07/11/19) Status post cholecystectomy Family History Father Liver disease Mother Pneumonia Sister Cancer Family/Other No problems noted. Social History household members: spouse Smoking Status: Never smoker second hand exposure: No alcohol intake: current substance use type: does not use Smoking Status: Never smoker alcohol intake frequency: a few times a week Substance Use Type: does not use Exam Narrative Exam Narrative: GENERAL: in no distress, not toxic not dyspneic HEAD: Normocephalic. EYES: Pupils equal round No scleral icterus. ENT: Mucous membranes moist. NECK: Trachea midline. CARDIOVASCULAR: Regular rate and rhythm without murmurs, chest nontender, has slight discomfort with deep breath but is better than before on the left side under the left breast. RESPIRATORY: Clear to auscultation. Breath sounds equal bilaterally. No wheezes, rales, or rhonchi. GASTROINTESTINAL: Abdomen soft, non-tender EXTREMITIES: No gross deformities. Cast is still intact on right lower extremity/leg/ankle. Toes are pink and warm with brisk cap refills NEURO: AOx4. SKIN: Warm and dry PSYCH: Not anxious, is cooperative Initial Vital Signs Initial Vital Signs: Vital Signs Pulse Rate 84 06/21/22 20:21 Blood Pressure 187/86 H 06/21/22 20:21 Pulse Oximetry 95 06/21/22 20:21 Course Orders Ordered: Discontinued Medications Sodium Chloride (Normal Saline 0.9%) 500 mls @ 1,000 mls/hr IV BOLUS ONE Stop: 06/21/22 21:21 Last Infusion: 06/21/22 21:20 Dose: 0 mls/hr Documented By: Admin: 06/21/22 20:59 Dose: 1,000 mls/hr Documented By: CHALO Levofloxacin (Levofloxacin 250 Mg Tablet) 750 mg PO NOW ONE Stop: 06/21/22 22:38 Last Admin: 06/21/22 22:40 Dose: 750 mg Documented By: CHALO Vital Signs Vital signs: Vital Signs - 8 hr 06/21/22 22:30 06/21/22 22:43 06/21/22 22:43 Pulse Rate 84 85 Respiratory Rate 24 21 Blood Pressure 158/77 H Pulse Oximetry 95 97 MDM - Chest Pain Differential Diagnosis Differential diagnosis: Likely stable angina, unstable angina pectoris, atypical chest pain, st elevation myocardial infarction, chest pain and other (Pulmonary embolism) Lab Data Result diagrams: 06/21/22 20:40 06/21/22 20:40 Labs: Lab Results 06/21/22 06/21/22 06/21/22 Range/Units 20:40 20:40 20:40 WBC 8.5 (4.5-11.0) X10^3/uL RBC 3.85 L (4.0-5.2) X10^6/uL Hgb 11.7 L (12.0-16.0) g/dL Hct 34.0 L (36-46) % MCV 88.3 (80-100) fL MCH 30.3 (26-34) PG MCHC 34.3 (30-36) % RDW 13.2 (11.6-14.8) % Plt Count 242 (150-400) X10^3/uL Neut % (Auto) 68.3 (50-75) % Lymph % (Auto) 21.6 L (25-40) % Mccormick % (Auto) 7.1 (3-14) % Eos % (Auto) 2.3 (2-4) % Baso % (Auto) 0.7 (0-2) % Neut # (Auto) 5800 (1054-3868) /uL Lymph # (Auto) 1800 (1479-1954) /uL Mccormick # (Auto) 600 (0-900) /uL Eos # (Auto) 200 (0-450) /uL Baso # (Auto) 100 (0-100) /uL PT 12.1 (10.1-12.7) SECONDS INR 1.1 (0.9-1.3) APTT 28 (26-36) SECONDS Sodium 136 L (137-145) mmol/L Potassium 3.9 (3.4-5.1) mmol/L Chloride 102 (98-107) mmol/L Carbon Dioxide 25 (22-32) mmol/L BUN 18 H (7-17) mg/dL Creatinine 0.60 (0.52-1.04) mg/dL Estimated GFR > 60 (>60) mL/min BUN/Creatinine Ratio 30.0 H (6-22) Glucose 106 (80-110) mg/dL Calcium 9.5 (8.4-10.2) mg/dL Magnesium 1.7 (1.6-2.3) mg/dL Total Bilirubin 0.4 (0.2-1.3) mg/dL AST 21 (14-36) IU/L ALT 15 (<35) IU/L Alkaline Phosphatase 70 (38-126) U/L Total Creatine Kinase 37 (30-135) U/L CK-MB (CK-2) TNP CK-MB (CK-2) Rel Index TNP Troponin I < 0.012 (0.01-0.034) ng/mL Total Protein 7.8 (6.3-8.2) g/dL Albumin 4.1 (3.5-5.0) g/dL Globulin 3.7 (1.7-4.1) g/dL Albumin/Globulin Ratio 1.1 (1.0-2.8) Lipase 96 (23-300) U/L Imaging Data CT scan - chest: Radiologist's Impression: [address] [address] [address] Scan Report Signed Patient: Lexy Maharaj MR#: [id number] : 1945 Acct:[id number] Age/Sex: 77 / F Date of Service: 06/21/22 Loc: ED Accession Number: [id number] ?? Procedure: CT angio chest PE protocol Ordering Provider: Ace Pak MD PROCEDURE:? CT ANGIO CHEST PE PROTOCOL ? INDICATIONS:? Left chest pain ? TECHNIQUE:? After the administration of intravenous contrast, 2 mm thick sections acquired from the pulmonary apices to the posterior costophrenic angles.? 3-dimensional maximum intensity projection (MIP) coronal and sagittal reformats were then acquired through the thorax.? For radiation dose reduction, the following was used:? automated exposure control, adjustment of mA and/or kV according to patient size.? ? COMPARISON:? [facility], CR, XR CHEST 1V, 06/21/2022, 20:37.? [facility], CT, PE STUDY (CTA CHEST), 03/13/2017, 19:53. ? FINDINGS:? Image quality:? Excellent.? ? Pulmonary arteries:? Pulmonary arteries are normal in size, and demonstrate no intraluminal filling defects to suggest central pulmonary embolism.? ? Lower Neck: No lymphadenopathy by size criteria. Thyroid:? Visualized thyroid demonstrates no discrete nodules. Axillae: No lymphadenopathy by size criteria. Chest Wall:? Unremarkable.? Bones: Visualized osseous structures demonstrate no suspicious lesions. ? Lungs and Airways:? There are bilateral clustered small pulmonary nodules with a tree-in-bud distribution associated with mild bronchiectasis, bronchial wall thi ckening and mucous plugging, predominately within the right lower lobe and left upper lobe.? Areas of peribronchial consolidation are also demonstrated within the left upper lobe including the lingula and a confluent region in the left apex associated with internal cavitation.? The findings are consistent with an atypical infection.? Bilateral geographic areas of mild indistinct ground-glass opacity also demonstrated bilaterally which may represent air trapping or mild pulmonary edema.? The trachea and central airways are patent. Pleura: No pneumothorax or pleural effusions.? ? Heart: Heart size is normal.? No pericardial effusion. Thoracic Vessels: The thoracic aorta is normal in size.? There is a 4 vessel aortic arch with separate origin of the left vertebral artery. Mediastinum and Sofía:? There are new enlarged mediastinal lymph nodes including a labor union business representative aortopulmonary node measuring up to 1.0 cm in short axis and a subcarinal node measuring approximately 1.2 cm in short axis.? Esophagus: No wall thickening. No hiatal hernia. ? Abdomen:? Visualized upper abdominal solid organs appear normal in the early arterial phase of enhancement.? ? IMPRESSION:? ? 1. No evidence of pulmonary embolism. ? 2. Bilateral clustered irregular indistinct nodules with a tree-in-bud appearanc e associated with mild bronchiectasis, bronchial wall thickening, and mucous plugging.? Confluent areas of peribronchial consolidation are demonstrated within the left upper lobe.? The constellation of findings are consistent with an atypical infection such as from MORRIS or fungal etiologies. ? 3. Mildly enlarged mediastinal lymph nodes are nonspecific but likely reactive.? ? Dictated by: Humberto Newman M.D. on 06/21/2022 at 21:53 ? ? Approved by: Humberto Newman M.D. on 06/21/2022 at 22:04 ? ECG Data Interpretation: Normal sinus rhythm rate [address] elevation or depression Treatment and disposition Social Determinants of Health that impact treatment or disposition: None Code Status and discussions:: Full Shared decision making:: Patient and family MDM Narrative Medical decision making narrative: Patient here with family, complains of reproducible left chest pain/below left breast that started about 1 or 2 hours ago. It is improving. It hurt with deep breath and movement. Patient states it feels like a blood clot in her lungs she had 6 years ago. She had oral surgery at that time and developed a blood clot 1 month later. Was on warfarin for 1 year and has discontinued afterwards and has been doing well since then. Patient is postop day 12 status post right ankle surgery that was done here. Patient states she has a cast and there has been no change in her calf or foot with any new discomfort. No history of DVT. Patient denies any dyspnea. No nausea or sweating. No recent exertional chest pain, denies any cardiac history. Patient was instructed to take daily aspirin after her ankle surgery. Denies any recent illness no cold congestion fever or chills. However has had ongoing cough Based on exam and history, CBC CMP troponin chest x-ray EKG and CT chest have been ordered. IV fluids given for renal hydration. At this time patient essentially symptom-free, differential diagnosis includes but not limited to angina unstable angina non-STEMI STEMI pleurisy/pulmonary embolism/pneumonia. At this time, not necessary for ultrasound of the calves. 10:30 p.m.. I have reviewed laboratory studies EKG CBC CMP troponin as well as CT of the chest. Otherwise reassuring other mucous plugging and he typical pneumonia finding on the left side. 10:35 p.m.. I spoke with hospitalist dr ellis, at this time vital signs are reassuring and recommends outpatient Levaquin 750 mg daily for 5 days and follow up with primary care for improvement otherwise can have outpatient bronchoscopy if concern for fungal infection if not improving with antibiotics. 10:38 p.m.. Spoke with patient and . Patient no longer has any chest discomfort. This may have been a mucus plug I spoke with her that may have moved. Causing her pleuritic pain. She does agree with treatment plan with antibiotics and follow up with primary care and understands may need bronchoscopy if not improving with antibiotics. She does have a primary care to follow up with. Appropriate for discharge home. Exam and laboratory studies and imaging EKG are reassuring. Patient discomfort likely/possibly mucus plugging discomfort. Appropriate for outpatient trial of Levaquin. Return precautions reviewed with patient. They desire discharge home. Patient has low risk of decompensation/deconditioning for outpatient management. Patient very comfortable with treatment plan. Vital signs are reassuring. Not requiring supplemental oxygen. Discharge Plan Departure Patient Disposition: Home Clinical Impression: Community acquired pneumonia Instructions: DI for Pneumonia -- Adult Activity Restrictions/Additional Instructions: Please continue Levaquin antibiotic tomorrow. Tomorrow will be day 2. You will take a 5 day course of antibiotic. Please see family doctor this week for re- evaluation and for your family doctor reviewed the CT scan of your lungs, if he do not improve he may need referral to Pulmonary Services for bronchoscopy/biopsy. Return immediately if worse if any questions or concerns or any trouble breathing or any chest pain. Prescriptions: New levofloxacin 750 mg tablet 750 mg PO DAILY Qty: 4 0RF No Action amlodipine [Norvasc] 5 mg tablet 5 mg PO QDAY Qty: 90 3RF carvedilol 6.25 mg tablet 6.25 mg PO BID Qty: 180 3RF Rx Instructions: must administer with a meal/food losartan 100 mg tablet 100 mg PO DAILY Qty: 90 3RF lorazepam 0.5 mg tablet 0.5 mg PO QDAYP PRN (Reason: anxiety) Qty: 30 1RF tramadol 50 mg tablet 50 mg PO DAILY Label Comments: TAKE ONE TABLET BY MOUTH EVERY SIX HOURS NEEDED celecoxib 400 mg capsule 400 mg PO DAILY Label Comments: TAKE ONE CAPSULE BY MOUTH ONE TIME DAILY Referrals: Travis Brennan ARNP [Primary Care Provider] - Stand Alone Forms: Patient Portal/API
[2022-06-21 20:56] LABS: Add Manual Diff / Slide Review NO; Basophils Absolute Auto 100 /uL (0-100); Basophils Percent Auto 0.7 % (0-2); Eosinophils Absolute Auto 200 /uL (0-450); Eosinophils Percent Auto 2.3 % (2-4); Hemoglobin 11.7 g/dL (12.0-16.0); Lymphocytes Absolute Auto 1800 /uL (1100-4500); Lymphocytes Percent Auto 21.6 % (25-40); Mean Corpuscular HGB Conc 34.3 % (30-36); Mean Corpuscular Hemoglobin 30.3 PG (26-34); Mean Corpuscular Volume 88.3 fL (80-100); Monocytes Absolute Auto 600 /uL (0-900); Monocytes Percent Auto 7.1 % (3-14); Neutrophils Absolute Auto 5800 /uL (1500-7000); Neutrophils Percent Auto 68.3 % (50-75); Platelet Count 242 X10^3/uL (150-400); Red Blood Cell Count 3.85 X10^6/uL (4.0-5.2); Red Cell Distribution Width 13.2 % (11.6-14.8); White Blood Cell Count 8.5 X10^3/uL (4.5-11.0)
[2022-06-21] MEDS: SODIUM CHLORIDE 0.9% 500 ML 1000 ML IV (20:59)
[2022-06-21 21:07] LABS: INR 1.1 (0.9-1.3); Prothrombin Time 12.1 SECONDS (10.1-12.7)
[2022-06-21 21:10] LABS: PTT Partial Thromboplastin Tim 28 SECONDS (26-36)
[2022-06-21 21:13] LABS: Alanine Aminotransferase 15 IU/L (<35); Albumin 4.1 g/dL (3.5-5.0); Albumin Globulin Ratio 1.1 (1.0-2.8); Alkaline Phosphatase 70 U/L (38-126); Aspartate Aminotransferase 21 IU/L (14-36); Bilirubin Total 0.4 mg/dL (0.2-1.3); Blood Urea Nitrogen 18 mg/dL (7-17); Calcium 9.5 mg/dL (8.4-10.2); Carbon Dioxide 25 mmol/L (22-32); Chloride 102 mmol/L (98-107); Creatine Kinase 37 U/L (30-135); Estimated Glomerular Filt Rate > 60 mL/min (>60); Globulin 3.7 g/dL (1.7-4.1); Glucose 106 mg/dL (80-110); HEMOLYSIS < 15 (0-50); Lipase 96 U/L (23-300); Magnesium 1.7 mg/dL (1.6-2.3); Potassium 3.9 mmol/L (3.4-5.1); Sodium 136 mmol/L (137-145); Total Protein 7.8 g/dL (6.3-8.2)
[2022-06-21 21:23] LABS: Troponin I < 0.012 ng/mL (0.01-0.034)
[2022-06-21] MEDS: levoFLOXacin 250 MG TABLET 750 MG PO (22:40)
== END 2022-06-21 22:53 | disposition home or self-care (01) ==
PROVIDERS: Emergency Provider Emergency Medicine; PCP Registered Nurse Diabetes Educator
DX: J18.9 Pneumonia, unspecified organism (principal); R07.9 Chest pain, unspecified
CPT/HCPCS: 36415; 71045; 71275; 80053; 82550; 83690; 83735; 84484; 85025; 85610; 85730; 93005; 93010; 99284; 99285; Q9967

== ENCOUNTER → 2023-03-05 09:23 | Outpatient (CLI) | payer MEDICARE, SELFPAY ==
[2022-04-13 10:41] VITALS: BMI 18.9
--- NOTE | 2023-03-05 09:24 | DI.CT.S_ITS ---
PROCEDURE: CT CHEST WO CON INDICATIONS: PULMONARY NODULES TECHNIQUE: Noncontrast 5 mm thick sections acquired from the pulmonary apices to the posterior costophrenic angles. 1 mm lung window, 5 mm thick coronal and sagittal and 7 mm axial MIP reformats were then acquired. For radiation dose reduction, the following was used: automated exposure control, adjustment of mA and/or kV according to patient size. COMPARISON: [facility], CT, CT ANGIO CHEST PE PROTOCOL, 06/21/2022, 21:01. FINDINGS: Image quality: Good Lungs and pleura: [place] scarring and bronchiectasis. Segmental scarring in the lingula. Diffuse mosaic attenuation. No pleural effusions. Diffuse centrilobular nodularity, most confluent in the left upper lobe and right lower lobe. Multifocal mucous plugging. Overall distribution of findings is similar to prior, nodularity may be slightly decreased. Mediastinum, heart, and esophagus: No hiatal hernia. Prominent mediastinal lymph nodes are similar to prior, probably reactive in this clinical setting. Atherosclerotic calcifications. Chest wall and thyroid: Unremarkable Upper abdomen: Cholecystectomy clips. No gross abnormality on these limited non-contrast images. Bones: Degenerative changes, no acute or suspicious osseous finding. IMPRESSION: Overall similar distribution of pulmonary scarring, bronchiectasis, and segmental chronic atelectasis, particularly affecting the lingula and apices. 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 Scattered mucous plugging, chronic small airways thickening, and mosaic attenuation suggestive of air trapping. Consider continued imaging follow-up and possible pulmonary consultation. Dictated by: Ino Loco M.D. on 03/05/2023 at 11:14 Approved by: Ino Loco M.D. on 03/05/2023 at 11:20
== END ==
PROVIDERS: PCP Registered Nurse Diabetes Educator; Referring Provider Registered Nurse Diabetes Educator; Visit Provider Registered Nurse Diabetes Educator
DX: R91.1 Solitary pulmonary nodule (principal); R59.0 Localized enlarged lymph nodes; J18.9 Pneumonia, unspecified organism
CPT/HCPCS: 71250

== ENCOUNTER → 2023-06-01 07:59 | Outpatient (CLI) | payer MEDICARE, SELFPAY ==
[2022-04-13 10:41] VITALS: BMI 18.9
[2023-06-01 08:47] LABS: Influenza A - CEPHEID Flu A NEGATIVE (NEGATIVE); Influenza B - CEPHEID Flu B NEGATIVE (NEGATIVE); Respiratory Syncytial Virus POSITIVE (Negative)
[2023-06-01 08:53] LABS: COVID-19 CEPHEID 4-PLEX PCR Negative (Negative)
== END ==
PROVIDERS: PCP Registered Nurse Diabetes Educator; Visit Provider Nurse Practitioner Family
DX: R05.1 Acute cough (principal)
CPT/HCPCS: 0241U

== ENCOUNTER → 2023-06-08 08:17 | Outpatient (CLI) | payer MEDICARE, SELFPAY ==
[2022-04-13 10:41] VITALS: BMI 18.9
[2023-06-08 09:22] LABS: Hematocrit 37.4 % (36-46); Hemoglobin 12.8 g/dL (12.0-16.0); Mean Corpuscular HGB Conc 34.1 % (30-36); Mean Corpuscular Hemoglobin 31.6 PG (26-34); Mean Corpuscular Volume 92.6 fL (80-100); Platelet Count 254 X10^3/uL (150-400); Red Blood Cell Count 4.03 X10^6/uL (4.0-5.2); Red Cell Distribution Width 13.1 % (11.6-14.8); White Blood Cell Count 7.5 X10^3/uL (4.5-11.0)
[2023-06-08 09:43] LABS: Alanine Aminotransferase 16 IU/L (<35); Albumin 4.5 g/dL (3.5-5.0); Albumin Globulin Ratio 1.2 (1.0-2.8); Alkaline Phosphatase 65 U/L (38-126); Aspartate Aminotransferase 27 IU/L (14-36); BUN Creatinine Ratio 27.8 (6-22); Bilirubin Total 0.9 mg/dL (0.2-1.3); Blood Urea Nitrogen 15 mg/dL (7-17); Calcium 9.9 mg/dL (8.4-10.2); Carbon Dioxide 27 mmol/L (22-32); Chloride 100 mmol/L (98-107); Cholesterol 199 mg/dL (140-199); Estimated Glomerular Filt Rate > 60 mL/min (>60); Globulin 3.9 g/dL (1.7-4.1); Glucose 95 mg/dL (80-110); HDL Cholesterol 60 mg/dL (40-60); HEMOLYSIS < 15 (0-50); LDL Cholesterol Calculated 124 mg/dL (<100); Potassium 4.4 mmol/L (3.4-5.1); Sodium 135 mmol/L (137-145); Total Protein 8.4 g/dL (6.3-8.2); Triglycerides 75 mg/dL (35-150)
[2023-06-08 09:47] LABS: Creatinine Urine Random 58.8 mg/dL
[2023-06-08 09:51] LABS: Microalbumi Creatinin Ratio Ur 45.9 ug/mg CR (<30); Microalbumin Urine Random 2.7 mg/dL (0-1.6)
== END ==
PROVIDERS: PCP Registered Nurse Diabetes Educator; Referring Provider Registered Nurse Diabetes Educator; Visit Provider Registered Nurse Diabetes Educator
DX: I10 Essential (primary) hypertension (principal); R80.9 Proteinuria, unspecified; D64.9 Anemia, unspecified
CPT/HCPCS: 36415; 80053; 80061; 82043; 82570; 85027

== ENCOUNTER → 2023-07-31 07:55 | Outpatient (CLI) | payer MEDICARE, SELFPAY ==
[2022-04-13 10:41] VITALS: BMI 18.9
--- NOTE | 2023-07-31 07:57 | DI.RAD.S_ITS ---
PROCEDURE: XR CHEST 2V INDICATIONS: Cough TECHNIQUE: 2 views of the chest were acquired. COMPARISON: CT, CT CHEST WO CON, 03/05/2023, 9:29. [facility], CR, XR CHEST 1V, 06/21/2022, 20:37. [facility], CR, XR CHEST 2V, 10/25/2018, 8:43. FINDINGS: Surgical changes and devices: None. Lungs and pleura: Infiltrate in the right upper lobe suspicious for pneumonia. Left perihilar opacity and biapical opacities are unchanged.. No pleural effusions or pneumothorax. Mediastinum: Mediastinal contours are normal. Heart size is normal. Bones and chest wall: No suspicious bony abnormalities. Soft tissues appear unremarkable. IMPRESSION: 1. Right upper lobe infiltrate suspicious for pneumonia. Dictated by: Natasha Hitchcock M.D. on 07/31/2023 at 10:05 Approved by: Natasha Hitchcock M.D. on 07/31/2023 at 10:06
== END ==
PROVIDERS: PCP Registered Nurse Diabetes Educator; Referring Provider Nurse Practitioner Family; Visit Provider Nurse Practitioner Family
DX: R05.9 Cough, unspecified (principal)
CPT/HCPCS: 71046

== ENCOUNTER → 2023-11-21 12:05 | Outpatient (CLI) | payer MEDICARE, SELFPAY ==
[2022-04-13 10:41] VITALS: BMI 18.9
--- NOTE | 2023-11-21 12:08 | DI.MRI.S_ITS ---
PROCEDURE: MR LUMBAR SPINE WO CON INDICATIONS: Spinal stenosis, lumbar region TECHNIQUE: Noncontrast sagittal T1 spin echo and T2 fast echo, sagittal STIR, and T2 fast spin echo through the lumbar spine. In cases with scoliosis, additional coronal T2 fast spin echo may be performed. COMPARISON: [facility], MR, L-SPINE WITHOUT CONTRAST, 03/14/2016, 8:30. FINDINGS: Image quality: This is a markedly limited study given patient motion artifact. Alignment and Curvature: When compared with the study dated March 14, 2016, there is been a marked interval increase in the extent of dextroscoliosis. There is now approximately 23.5? right convex scoliosis centered at L2. This previously measured approximately 10? right convex scoliosis. There is approximately 8 mm L4 on L5 anterolisthesis which is increased from approximately 5 mm on the 2016 study. Trace L2 on L3 retrolisthesis is also present. Bone Marrow: There are extensive multilevel reactive endplate changes. No compression deformities. Spinal Cord: Conus medullaris terminates at the L1 level. Visualized cord demonstrates normal signal and size. Paraspinous Soft Tissues: No paravertebral masses. T12-L1: Moderate disc desiccation and height loss. Severe reactive endplate changes. Broad-based disc bulge. No canal stenosis. Mild bilateral foraminal stenosis. L1-L2: Severe disc desiccation and height loss. Broad-based disc bulge. No canal stenosis. Mild facet ligamentum flavum hypertrophy. Severe left foraminal stenosis with flattening of the exiting nerve root. Mild right foraminal stenosis. L2-L3: Trace retrolisthesis. Severe disc desiccation and height loss. There is likely severe facet ligamentum flavum hypertrophy which is poorly characterized. Mild canal stenosis. Severe bilateral foraminal stenosis. L3-L4: Severe facet ligamentum flavum hypertrophy. Moderate to severe facet ligamentum flavum hypertrophy. Broad-based disc bulge. Moderate canal stenosis. Moderate bilateral foraminal stenosis. L4-L5: Grade 1 anterolisthesis, likely increased from the 2016 study. Severe disc desiccation and height loss. Severe canal stenosis. Severe right foraminal stenosis with flattening of the exiting nerve root. Mild left foraminal stenosis. L5-S1: Severe disc desiccation and height loss. Severe facet and ligamentum flavum hypertrophy. Broad-based disc bulge. Reactive endplate changes and vacuum disc phenomenon. Moderate canal stenosis. Mild bilateral foraminal stenosis. IMPRESSION: 1. Marked increase in the dextroscoliosis when compared with the prior MRI dated March 14, 2016. 2. Severe disc desiccation, height loss, and reactive endplate changes throughout the lumbar spine. Overall these findings have markedly increased in severity from the 2016 study. 3. Increased grade I L4-5 anterolisthesis when compared to the 2016 study. 4. Broad-based disc bulges and facet and ligamentum flavum hypertrophy with resultant mild canal stenosis at L2-3, moderate canal stenosis at L3-4 and L5-S1 and severe canal stenosis at L4-5. 5. Severe left foraminal stenosis at L1-2, severe right foraminal stenosis at L4-5. Both of these demonstrate flattening of the exiting nerve root. 6. Severe bilateral foraminal stenosis at L2-3. 7. Moderate bilateral foraminal stenosis at L3-4. Dictated by: Radha Willett M.D. on 11/21/2023 at 14:10 Approved by: Radha Willett M.D. on 11/21/2023 at 14:21
== END ==
PROVIDERS: PCP Registered Nurse Diabetes Educator; Referring Provider Physical Medicine & Rehabilitation Pain Medicine; Visit Provider Physical Medicine & Rehabilitation Pain Medicine
DX: M48.061 Spinal stenosis, lumbar region without neurogenic claudication (principal); M48.07 Spinal stenosis, lumbosacral region; M41.9 Scoliosis, unspecified; M43.16 Spondylolisthesis, lumbar region; M51.36 Other intervertebral disc degeneration, lumbar region; M51.37 Other intervertebral disc degeneration, lumbosacral region; M47.816 Spondylosis without myelopathy or radiculopathy, lumbar region; M47.817 Spondylosis without myelopathy or radiculopathy, lumbosacral region
CPT/HCPCS: 72148

== ENCOUNTER → 2024-02-27 15:52 | Outpatient (CLI) | payer MEDICARE, SELFPAY ==
[2022-04-13 10:41] VITALS: BMI 18.9
[2024-02-27 17:27] LABS: Add Manual Diff / Slide Review NO; Basophils Absolute Auto 0 /uL (0-100); Basophils Percent Auto 0.3 % (0-2); Eosinophils Absolute Auto 200 /uL (0-450); Eosinophils Percent Auto 2.2 % (2-4); Hematocrit 34.3 % (36-46); Hemoglobin 11.6 g/dL (12.0-16.0); Lymphocytes Absolute Auto 1400 /uL (1100-4500); Lymphocytes Percent Auto 13.7 % (25-40); Mean Corpuscular HGB Conc 33.8 % (30-36); Mean Corpuscular Hemoglobin 29.3 PG (26-34); Mean Corpuscular Volume 86.6 fL (80-100); Monocytes Absolute Auto 800 /uL (0-900); Monocytes Percent Auto 7.8 % (3-14); Neutrophils Absolute Auto 7600 /uL (1500-7000); Platelet Count 394 X10^3/uL (150-400); Red Blood Cell Count 3.96 X10^6/uL (4.0-5.2); Red Cell Distribution Width 13.8 % (11.6-14.8)
[2024-02-27 17:32] LABS: Appearance Urine UA CLEAR; Bilirubin Urine UA NEGATIVE (NEGATIVE); Color Urine UA YELLOW; Glucose Urine UA NEGATIVE (Negative); Ketones Urine UA NEGATIVE (NEGATIVE); Leukocyte Esterase Urine UA TRACE (NEGATIVE); Nitrite Urine UA POSITIVE (Negative); Occult Blood Urine UA NEGATIVE (Negative); Protein Urine UA NEGATIVE (Negative); Urobilinogen Urine UA 0.2 E.U./dL (0.2)
[2024-02-27 17:36] LABS: Urine Volume 10mL (spun)
[2024-02-27 17:37] LABS: Bacteria Urine Many (>30); RBC Urine None Seen (0-5/HPF); WBC Urine 5-10/HPF (0-5/HPF)
[2024-02-27 17:38] LABS: Culture Indicated Urine Specimen Cultured; Squamous Epithelial Cell Urine None Seen (0-5/HPF)
[2024-02-27 17:49] LABS: Erythrocyte Sedimentation Rate 78 MM/HR (0-20)
[2024-02-27 17:57] LABS: Alanine Aminotransferase 11 IU/L (<35); Albumin Globulin Ratio 0.9 (1.0-2.8); Alkaline Phosphatase 79 U/L (38-126); Aspartate Aminotransferase 20 IU/L (14-36); Bilirubin Total 0.3 mg/dL (0.2-1.3); Blood Urea Nitrogen 16 mg/dL (7-17); C-Reactive Protein Quant 5.8 mg/dL (<1.0); Calcium 9.8 mg/dL (8.4-10.2); Carbon Dioxide 26 mmol/L (22-32); Chloride 102 mmol/L (98-107); Estimated Glomerular Filt Rate > 60 mL/min (>60); Globulin 4.3 g/dL (1.7-4.1); Glucose 108 mg/dL (80-110); HEMOLYSIS < 15 (0-50); Potassium 3.6 mmol/L (3.4-5.1); Sodium 137 mmol/L (137-145); Total Protein 8.3 g/dL (6.3-8.2)
[2024-02-27 18:15] LABS: Free T4, Direct Thyroxine 1.35 ng/dL (0.78-2.19)
[2024-02-27 18:29] LABS: Thyroid Stimulating Hormone 2.89 uIU/mL (0.47-4.68)
[2024-02-27 18:48] LABS: Vitamin B12 779 pg/mL (239-931)
[2024-02-27 19:30] LABS: Hemoglobin A1C% w Est Avg Glu 5.7 % (4.0-6.0)
[2024-02-28 16:36] LABS: HIV 1 & 2 Ab/Ag 4th Gen Combo NEGATIVE (NEGATIVE); Hep C Virus Ab w/Reflex Quant NEGATIVE s/c (NEGATIVE)
[2024-03-01 14:09] LABS: QuantiFERON Mitogen Value >10.00 IU/mL (.); QuantiFERON Nil Value 0.02 IU/mL (.); QuantiFERON TB Gold Plus Negative (Negative); QuantiFERON TB1 Ag Value 0.01 IU/mL (.); QuantiFERON TB2 Ag Value 0.01 IU/mL (.)
== END ==
PROVIDERS: PCP Registered Nurse Diabetes Educator; Referring Provider Registered Nurse Diabetes Educator; Visit Provider Registered Nurse Diabetes Educator
DX: R63.4 Abnormal weight loss (principal); R05.3 Chronic cough
CPT/HCPCS: 36415; 80053; 81001; 82607; 83036; 84439; 84443; 85025; 85651; 86140; 86480; 86803; 87077; 87086; 87186; 87389

== ENCOUNTER → 2024-02-29 15:05 | Outpatient (CLI) | payer MEDICARE, SELFPAY ==
[2022-04-13 10:41] VITALS: BMI 18.9
--- NOTE | 2024-02-29 | DI.CT.S_ITS ---
PROCEDURE: CT CHEST W CON INDICATIONS: f/u MORRIS, unintentional weight loss TECHNIQUE: After the administration of intravenous contrast, 5 mm thick sections acquired from the pulmonary apices to the posterior costophrenic angles. 1 mm axial lung, 5 mm thick coronal and sagittal reformats and 7 mm axial MIP were acquired. For radiation dose reduction, the following was used: automated exposure control, adjustment of mA and/or kV according to patient size. COMPARISON: [facility], CT, CT CHEST WO [facility], 03/05/2023, 9:29. FINDINGS: Image quality: Diagnostic. Lower Neck: No enlarged lymph nodes. Thyroid: No thyroid nodules which require sonographic follow up, per consensus guidelines. Axillae: No enlarged lymph nodes. Chest Wall: Unremarkable. Bones: Unremarkable. Lungs and Pleura: Diffuse tree-in-bud nodules with mucous impaction, and bronchiectasis. There is volume loss in the right middle lobe and lingula, similar to prior. New focus of consolidation in the left lower lobe (series 3, image 185). Cavitation with scarring in the left upper lobe is similar to prior. Heart: Heart size is normal. No pericardial effusion. Thoracic Vessels: The aorta and pulmonary arteries demonstrate normal size. Mediastinum and Sofía: Enlarged left hilar nodes, largest measuring 1.2 centimeter. Esophagus: No wall thickening. No hiatal hernia. Upper Abdomen: Stable nodular thickening of the left adrenal gland. 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 Superimposed consolidation in the left lower lobe is concerning for infection, with malignancy being in the differential. Recommend repeat CT in 2-3 months following therapy to ensure resolution, specially in the setting of weight loss. Enlarged left hilar node, probably reactive. Dictated by: Zackery Collins M.D. on 02/29/2024 at 17:02 Approved by: Zackery Collins M.D. on 02/29/2024 at 17:05
--- NOTE | 2024-02-29 15:08 | DI.RAD.S_ITS ---
PROCEDURE: XR DEXA AXIAL SKELETON INDICATIONS: eval, risk for osteoporosis COMPARISON: [facility], , XR DEXA AXIAL SKELETON, 06/21/2021, 14:32. FINDINGS: Lumbar Spine (L1 excluded due to increased density): Bone mineral density 1.248 g/cm2, T score 1.5, previously 2.2. Left Hip: Bone mineral density 0.929 g/cm2, T score -0.1, previously 0.3. Left Femoral Neck: Bone mineral density 0.838 g/cm2, T score -0.1, unchanged. Right Hip: Bone mineral density 0.989 g/cm2, T score 0.4, previously 0.8. Right Femoral Neck: Bone mineral density 0.899 g/cm2, T score 0.5, unchanged. Fracture Risk Calculation (when applicable): Not reported due to normal bone mineral density. (T score greater or equal to -1.0 to: NORMAL) (T score from -1.1 to -2.4: OSTEOPENIA) (T score less than or equal to -2.5: OSTEOPOROSIS) IMPRESSION: Normal bone mineral density. Follow-up guidelines as follows: Osteoporosis: Consider a repeat DEXA and Vertebral Fracture Assessment (VFA) exam in 2 years or sooner if medically necessary, to reassess this patient's status. Osteopenia: Consider a repeat DEXA in 2-3 years to reassess this patient's status, or if there is a new clinical indication. Normal: Consider a repeat DEXA in 5 years or sooner, or if there is a new clinical indication. All treatment decisions require clinical judgment and consideration of individual patient factors, including patient preferences, comorbidities, previous drug use, risk factors not captured in the FRAX model (e.g., frailty, falls, vitamin D deficiency, increased bone turnover, interval significant decline in bone density ) and possible under- or over-estimation of fracture risk by FRAX. In addition, the NOF Guide recommends that FDA-approved medical therapies be considered in postmenopausal women and men age >= 50 years with a: * Hip or vertebral (clinical or morphometric) fracture * T-score of <=-2.5 at the spine or hip * Ten-year fracture probability by FRAX of >= 3% for hip fracture or >=20% for major osteoporotic fracture. People with diagnosed cases of osteoporosis or at high risk for fracture should have regular bone mineral density tests. For patients eligible for Medicare, routine testing is allowed once every 2 years. The testing frequency can be increased to one year for patients who have rapidly progressing disease, those who are receiving or discontinuing medical therapy to restore bone mass, or have additional risk factors. Dictated by: Zackery Collins M.D. on 02/29/2024 at 16:44 Approved by: Zackery Collins M.D. on 02/29/2024 at 16:46
--- NOTE | 2024-02-29 15:08 | DI.MG.S_ITS ---
BILATERAL DIGITAL SCREENING MAMMOGRAM 3D/2D WITH CAD: 02/29/2024 CLINICAL: Routine screening. Comparison is made to exams dated: 06/01/2022 mammogram, 05/17/2021 mammogram, and 02/11/2020 mammogram - [facility]. The breasts are heterogeneously dense, which may obscure small masses (category c / 51-75% glandular tissue). Current study was also evaluated with a Computer Aided Detection (CAD) system. There are benign calcifications in both breasts. There also are benign vascular calcifications in both breasts. No significant masses, calcifications, or other findings are seen in either breast. There has been no significant interval change. IMPRESSION: BENIGN There is no mammographic evidence of malignancy. A 1 year screening mammogram is recommended. Based on the Tyrer Cuzick model (a risk assessment model) the patient's lifetime risk is 2.7% and her 10 year risk is 0.0%. According to the ACR, ACS, and NCCN guidelines, an annual breast MRI exam along with mammogram is recommended if the patient's lifetime risk is 20% or greater. This exam was interpreted at Station ID: [id number]. NOTE: For mammograms, a report in lay terms will be sent to the patient. Approximately 15% of breast malignancies will not be visualized mammographically. In the management of a palpable breast mass, a negative mammogram must not discourage biopsy of a clinically suspicious lesion. Electronically Signed By: Jovany pierre/pari:02/29/2024 17:06:52 letter sent: Normal Exam ACR BI-RADS Category 2: Benign
[2024-02-29 16:39] LABS: Occult Blood 1 Negative (Negative); Occult Blood 2 Negative (Negative); Occult Blood 3 Negative (Negative)
== END ==
PROVIDERS: PCP Registered Nurse Diabetes Educator; Referring Provider Registered Nurse Diabetes Educator; Visit Provider Registered Nurse Diabetes Educator
DX: R92.333 Mammographic heterogeneous density, bilateral breasts (principal); Z12.31 Encounter for screening mammogram for malignant neoplasm of breast; Z78.0 Asymptomatic menopausal state; A31.0 Pulmonary mycobacterial infection; R63.4 Abnormal weight loss; R05.3 Chronic cough
CPT/HCPCS: 71260; 77063; 77067; 77080; 82270; Q9967

== ENCOUNTER → 2024-03-03 14:56 | Outpatient (CLI) | payer MEDICARE, SELFPAY ==
[2022-04-13 10:41] VITALS: BMI 18.9
== END ==
PROVIDERS: PCP Registered Nurse Diabetes Educator; Referring Provider Registered Nurse Diabetes Educator; Visit Provider Registered Nurse Diabetes Educator
DX: A31.0 Pulmonary mycobacterial infection (principal)
CPT/HCPCS: 87116; 87206

== ENCOUNTER → 2024-03-08 12:27 | Outpatient (CLI) | payer MEDICARE, SELFPAY ==
[2022-04-13 10:41] VITALS: BMI 18.9
== END ==
PROVIDERS: PCP Registered Nurse Diabetes Educator; Referring Provider Student in an Organized Health Care Education/Training Program; Visit Provider Student in an Organized Health Care Education/Training Program
DX: A31.0 Pulmonary mycobacterial infection (principal)
CPT/HCPCS: 87070; 87077; 87116; 87147; 87186; 87205; 87206

== ENCOUNTER → 2024-03-12 15:35 | Outpatient (CLI) | payer MEDICARE, SELFPAY ==
[2022-04-13 10:41] VITALS: BMI 18.9
== END ==
PROVIDERS: PCP Registered Nurse Diabetes Educator; Visit Provider Registered Nurse Diabetes Educator
DX: R30.0 Dysuria (principal)
CPT/HCPCS: 87086

== ENCOUNTER → 2024-04-03 10:08 | Outpatient (CLI) | payer MEDICARE, SELFPAY ==
[2022-04-13 10:41] VITALS: BMI 18.9
[2024-04-03 16:01] LABS: HEMOLYSIS < 15 (0-50); Iron 20 ug/dL (37-170)
[2024-04-03 16:12] LABS: Percent Iron Saturation 7 % (15-50); Total Iron Binding Capacity 272 ug/dL (265-497); Transferrin 206 mg/dL (206-381)
== END ==
PROVIDERS: Physician Assistant; PCP Registered Nurse Diabetes Educator; Referring Provider Registered Nurse Diabetes Educator; Visit Provider Registered Nurse Diabetes Educator
DX: D50.9 Iron deficiency anemia, unspecified (principal)
CPT/HCPCS: 36415; 83540; 83550

== ENCOUNTER → 2024-04-10 14:27 | Outpatient (CLI) | payer MEDICARE, SELFPAY ==
[2022-04-13 10:41] VITALS: BMI 18.9
--- NOTE | 2024-04-10 14:29 | DI.RAD.S_ITS ---
PROCEDURE: XR CHEST 2V INDICATIONS: FU LLL pneumonia from 02/28 CT TECHNIQUE: 2 views of the chest were acquired. COMPARISON: [facility], CT, CT CHEST W CON, 02/29/2024, 15:57. [facility], CR, XR CHEST 2V, 07/31/2023, 8:07. FINDINGS: Surgical changes and devices: None. Lungs and pleura: Patchy opacities again seen throughout both lungs. Findings and likely not significantly changed when compared to the CT from 02/29/2024 given differences in modality. Left apical scarring and cavitation does not appear significantly changed. Mediastinum: Mediastinal contours are normal. Heart size is normal. Aortic atherosclerotic calcifications. Bones and chest wall: No suspicious bony abnormalities. Soft tissues appear unremarkable. IMPRESSION: Patchy opacities in both lungs do not appear significantly changed when compared to the CT from 02/29/2024 given differences in modality. Approved by: Bill Raygoza M.D. on 04/10/2024 at 14:54
[2024-04-10 15:09] LABS: Add Manual Diff / Slide Review NO; Basophils Absolute Auto 100 /uL (0-100); Basophils Percent Auto 0.9 % (0-2); Eosinophils Absolute Auto 200 /uL (0-450); Eosinophils Percent Auto 1.2 % (2-4); Hematocrit 33.5 % (36-46); Hemoglobin 11.3 g/dL (12.0-16.0); Lymphocytes Absolute Auto 1900 /uL (1100-4500); Lymphocytes Percent Auto 13.1 % (25-40); Mean Corpuscular HGB Conc 33.7 % (30-36); Mean Corpuscular Hemoglobin 28.6 PG (26-34); Mean Corpuscular Volume 85.1 fL (80-100); Monocytes Absolute Auto 900 /uL (0-900); Monocytes Percent Auto 6.4 % (3-14); Neutrophils Absolute Auto 11200 /uL (1500-7000); Neutrophils Percent Auto 78.4 % (50-75); Platelet Count 708 X10^3/uL (150-400); Red Blood Cell Count 3.93 X10^6/uL (4.0-5.2); Red Cell Distribution Width 15.5 % (11.6-14.8); White Blood Cell Count 14.3 X10^3/uL (4.5-11.0)
[2024-04-10 15:27] LABS: HEMOLYSIS < 15 (0-50); Iron 49 ug/dL (37-170)
[2024-04-10 15:33] LABS: Alanine Aminotransferase 26 IU/L (<35); Albumin 3.9 g/dL (3.5-5.0); Albumin Globulin Ratio 0.8 (1.0-2.8); Alkaline Phosphatase 125 U/L (38-126); Aspartate Aminotransferase 30 IU/L (14-36); BUN Creatinine Ratio 27.3 (6-22); Bilirubin Total 0.7 mg/dL (0.2-1.3); Blood Urea Nitrogen 18 mg/dL (7-17); C-Reactive Protein Quant 3.6 mg/dL (<1.0); Calcium 10.3 mg/dL (8.4-10.2); Carbon Dioxide 29 mmol/L (22-32); Chloride 97 mmol/L (98-107); Estimated Glomerular Filt Rate > 60 mL/min (>60); Globulin 4.9 g/dL (1.7-4.1); Glucose 120 mg/dL (80-110); HEMOLYSIS < 15 (0-50); Potassium 4.4 mmol/L (3.4-5.1); Sodium 133 mmol/L (137-145); Total Protein 8.8 g/dL (6.3-8.2)
[2024-04-10 15:38] LABS: Percent Iron Saturation 16 % (15-50); Total Iron Binding Capacity 308 ug/dL (265-497); Transferrin 245 mg/dL (206-381)
[2024-04-10 16:02] LABS: Erythrocyte Sedimentation Rate 128 MM/HR (0-20)
[2024-04-10 16:10] LABS: Ferritin 239 ng/mL (11-264)
== END ==
PROVIDERS: Physician Assistant; PCP Registered Nurse Diabetes Educator; Referring Provider Registered Nurse Diabetes Educator; Visit Provider Registered Nurse Diabetes Educator
DX: D50.9 Iron deficiency anemia, unspecified (principal); J18.1 Lobar pneumonia, unspecified organism; A31.0 Pulmonary mycobacterial infection; R63.4 Abnormal weight loss; R79.82 Elevated C-reactive protein (CRP); D64.9 Anemia, unspecified; R77.1 Abnormality of globulin; I70.0 Atherosclerosis of aorta
CPT/HCPCS: 36415; 71046; 80053; 82728; 83540; 83550; 85025; 85651; 86140

== ENCOUNTER → 2024-04-14 11:21 | Outpatient (CLI) | payer MEDICARE, SELFPAY ==
[2022-04-13 10:41] VITALS: BMI 18.9
[2024-04-14 12:02] LABS: Add Manual Diff / Slide Review NO; Basophils Absolute Auto 100 /uL (0-100); Basophils Percent Auto 0.5 % (0-2); Eosinophils Absolute Auto 200 /uL (0-450); Eosinophils Percent Auto 1.4 % (2-4); Hematocrit 33.9 % (36-46); Hemoglobin 11.3 g/dL (12.0-16.0); Lymphocytes Absolute Auto 1600 /uL (1100-4500); Lymphocytes Percent Auto 12.4 % (25-40); Mean Corpuscular HGB Conc 33.3 % (30-36); Mean Corpuscular Hemoglobin 28.6 PG (26-34); Monocytes Absolute Auto 700 /uL (0-900); Neutrophils Absolute Auto 10600 /uL (1500-7000); Neutrophils Percent Auto 80.7 % (50-75); Platelet Count 650 X10^3/uL (150-400); Red Blood Cell Count 3.94 X10^6/uL (4.0-5.2); Red Cell Distribution Width 15.8 % (11.6-14.8); White Blood Cell Count 13.2 X10^3/uL (4.5-11.0)
[2024-04-14 12:14] LABS: HEMOLYSIS < 15 (0-50); Iron 58 ug/dL (37-170)
[2024-04-14 12:15] LABS: Appearance Urine UA CLEAR; Bilirubin Urine UA NEGATIVE (NEGATIVE); Color Urine UA YELLOW; Glucose Urine UA NEGATIVE (Negative); Ketones Urine UA NEGATIVE (NEGATIVE); Leukocyte Esterase Urine UA 1+ (NEGATIVE); Nitrite Urine UA NEGATIVE (Negative); Occult Blood Urine UA NEGATIVE (Negative); Protein Urine UA NEGATIVE (Negative); Specific Gravity Urine UA 1.025 (1.000-1.035); Urobilinogen Urine UA 0.2 E.U./dL (0.2)
[2024-04-14 12:22] LABS: Bacteria Urine None Seen; Culture Indicated Urine Specimen Cultured; RBC Urine None Seen (0-5/HPF); Squamous Epithelial Cell Urine None Seen (0-5/HPF); Urine Volume 10mL (spun); WBC Urine 1-5/HPF (0-5/HPF)
[2024-04-14 12:25] LABS: Percent Iron Saturation 17 % (15-50); Total Iron Binding Capacity 347 ug/dL (265-497); Transferrin 275 mg/dL (206-381)
[2024-04-15 03:12] LABS: Complement C3 168 mg/dL (82-167)
[2024-04-15 21:37] LABS: Free Kappa Lt Chains, Serum 69.8 mg/L (3.3-19.4); Free Lambda Lt Chains,Serum 48.9 mg/L (5.7-26.3)
[2024-04-16 16:36] LABS: Immunoglobulin A, Serum 492 mg/dL (64-422); Immunoglobulin G,Serum 2443 mg/dL (586-1602); Immunoglobulin M, Serum 178 mg/dL (26-217)
[2024-04-16 17:09] LABS: Albumin 3.2 g/dL (2.9-4.4); Alpha-1-Globulin 0.4 g/dL (0.0-0.4); Gamma Globulin 2.6 g/dL (0.4-1.8); Globulin Total 5.3 g/dL (2.2-3.9); Protein, Total 8.5 g/dL (6.0-8.5)
[2024-04-16 18:36] LABS: ANA Screen, IFA Negative (.)
== END ==
PROVIDERS: Physician Assistant; PCP Registered Nurse Diabetes Educator; Referring Provider Registered Nurse Diabetes Educator; Visit Provider Registered Nurse Diabetes Educator
DX: R77.9 Abnormality of plasma protein, unspecified (principal); D50.9 Iron deficiency anemia, unspecified; E83.52 Hypercalcemia; D72.829 Elevated white blood cell count, unspecified; R70.0 Elevated erythrocyte sedimentation rate; R79.82 Elevated C-reactive protein (CRP); R63.4 Abnormal weight loss; R05.3 Chronic cough; R53.81 Other malaise; N39.0 Urinary tract infection, site not specified; A31.0 Pulmonary mycobacterial infection
CPT/HCPCS: 36415; 81001; 82595; 82784; 83516; 83540; 83550; 83883; 84155; 84165; 85025; 86038; 86160; 86256; 86334; 87040; 87086

== ENCOUNTER → 2024-04-19 12:39 | Outpatient (CLI) | payer MEDICARE, SELFPAY ==
[2022-04-13 10:41] VITALS: BMI 18.9
--- NOTE | 2024-04-19 12:40 | DI.CT.S_ITS ---
PROCEDURE: CT CHEST W CON INDICATIONS: f/u LLL consolidation, MORRIS, weight loss TECHNIQUE: After the administration of intravenous contrast, 5 mm thick sections acquired from the pulmonary apices to the posterior costophrenic angles. 1 mm axial lung, 5 mm thick coronal and sagittal reformats and 7 mm axial MIP were acquired. For radiation dose reduction, the following was used: automated exposure control, adjustment of mA and/or kV according to patient size. COMPARISON: [facility], CT, CT CHEST W CON, 02/29/2024, 15:57. FINDINGS: Image quality: Diagnostic. Lower Neck: No enlarged lymph nodes. Thyroid: No thyroid nodules which require sonographic follow up, per consensus guidelines. Axillae: No enlarged lymph nodes. Chest Wall: Unremarkable. Bones: Unremarkable. Lungs and Pleura: No pneumothorax or pleural effusions. Again seen in the is diffuse bronchiectasis, left greater than right . There is focal consolidation within the right middle lobe which is decreased compared to the prior. There also areas of focal consolidation within the left lower lobe and lingula which are slightly increased compared to prior. Heart: Heart size is normal. No pericardial effusion. Thoracic Vessels: The aorta and pulmonary arteries demonstrate normal size. Mediastinum and Sofía: Scattered lymph nodes are mildly enlarged, measuring up to 1.4 cm. Esophagus: No wall thickening. No hiatal hernia. Upper Abdomen: Visualized upper abdomen solid organs and bowel loops show no acute abnormality. IMPRESSION: Waxing and waning consolidations and bronchiectasis consistent with the given history of MORRIS. Dictated by: Marii Matthews M.D. on 04/19/2024 at 12:29 Approved by: Marii Matthews M.D. on 04/19/2024 at 12:36
== END ==
PROVIDERS: PCP Registered Nurse Diabetes Educator; Referring Provider Registered Nurse Diabetes Educator; Visit Provider Registered Nurse Diabetes Educator
DX: A31.0 Pulmonary mycobacterial infection (principal); J18.1 Lobar pneumonia, unspecified organism; R63.4 Abnormal weight loss
CPT/HCPCS: 71260; Q9967

== ENCOUNTER → 2024-05-03 09:38 | Outpatient (CLI) | payer MEDICARE, SELFPAY ==
[2022-04-13 10:41] VITALS: BMI 18.9
== END ==
LOC: LAB 09:39
PROVIDERS: PCP Registered Nurse Diabetes Educator; Referring Provider Student in an Organized Health Care Education/Training Program; Visit Provider Student in an Organized Health Care Education/Training Program
DX: R05.9 Cough, unspecified (principal)
CPT/HCPCS: 87070; 87077; 87147; 87186; 87205

== ENCOUNTER → 2024-05-09 09:48 | Outpatient (CLI) | payer MEDICARE, SELFPAY ==
[2022-04-13 10:41] VITALS: BMI 18.9
== END ==
PROVIDERS: PCP Registered Nurse Diabetes Educator; Referring Provider Student in an Organized Health Care Education/Training Program; Visit Provider Student in an Organized Health Care Education/Training Program
DX: A31.0 Pulmonary mycobacterial infection (principal)
CPT/HCPCS: 87116; 87206

== ENCOUNTER → 2024-05-14 12:42 | Outpatient (CLI) | payer MEDICARE, SELFPAY ==
[2022-04-13 10:41] VITALS: BMI 18.9
== END ==
PROVIDERS: PCP Registered Nurse Diabetes Educator; Referring Provider Internal Medicine Infectious Disease; Visit Provider Internal Medicine Infectious Disease
DX: J47.9 Bronchiectasis, uncomplicated (principal)
CPT/HCPCS: 87116; 87149; 87206

== ENCOUNTER 2024-07-09 18:28 | Emergency (ER) | payer MEDICARE, SELFPAY ==
[2022-04-13 10:41] VITALS: BMI 18.9
[2024-07-09 18:39] VITALS: BP 153/77; PULSE 81; RESP 16; TEMP 36.5; O2SAT 93; BMI 16.6
--- NOTE | 2024-07-09 18:52 | DI.CT.S_ITS ---
PROCEDURE: CT HEAD/BRAIN WO CON INDICATIONS: dizziness, hit head. No LOC, No thinners TECHNIQUE: Noncontrast 4.5 mm thick angled axial sections acquired from the foramen magnum to the vertex, with coronal and sagittal reformats. For radiation dose reduction, the following was used: automated exposure control, adjustment of mA and/or kV according to patient size. COMPARISON: None. FINDINGS: Image quality: Diagnostic. CSF spaces: Basal cisterns are patent. No extra-axial fluid collections. The ventricles are symmetric in size and shape. Brain: No acute intracranial hemorrhage or mass effect. There is cerebral volume loss for age, with resultant ventricular and sulcal prominence. There are periventricular and deep white matter chronic small vessel ischemic changes. There is intracranial internal carotid artery atherosclerosis. Skull and face: Mild right temporoparietal scalp edema and trace subcutaneous gas. Calvarium and visualized facial bones appear intact, without suspicious lesions. Sinuses: Visualized sinuses and mastoids are clear. IMPRESSION: No acute intracranial pathology. Approved by: Bill Raygoza M.D. on 07/09/2024 at 19:32
--- NOTE | 2024-07-09 21:35 | ED_ITS ---
HPI - Head Injury General Chief complaint: Head Injury Stated complaint: Fall, hit head, no blood thinners Time Seen by Provider: 07/09/24 21:33 Source: patient, RN notes reviewed and old records reviewed Mode of arrival: Ambulatory Limitations: no limitations History of Present Illness HPI Narrative: 79-year-old female with complaint of fall and hitting her head. Patient states she was at home was reaching and looking upwards to her cabinet cauda little bit dizzy and fell striking her on a cabinet or the refrigerator. She states she did not actually fall backwards and hit head on the floor. Did have a cut on the side of her head which was bleeding and was difficult to stop presented. She states symptoms resolved shortly thereafter she has not had any additional symptoms. Other than the area of the cut she denies headache no neck pain, no chest pain or shortness of breath. No diaphoresis. No nausea or vomiting. No GI or urinary symptoms. No numbness tingling or weakness. Patient is unsure of her tetanus status. States no anticoagulants does take 3 medications for hypertension. Patient states she has had prior ankle surgery bilaterally and cholecystectomy. No tobacco, has a glass of wine nightly but had only 2 sips of her glass tonight, no recreational drugs. Related Data Home Medications Medication Instructions Recorded Confirmed omeprazole magnesium 20 mg 20 mg PO DAILY 03/13/23 06/18/24 capsule,delayed release ([employer]id [employer] (omeprazole)) ferrous gluconate 324 mg (37.5 mg 324 mg PO DAILY 04/15/24 05/27/24 iron) tablet Previous Rx's Medication Instructions Recorded lorazepam 0.5 mg tablet 0.5 mg PO QDAYP PRN anxiety #30 03/31/24 tabs amlodipine 5 mg tablet (Norvasc) 5 mg PO QDAY #90 tabs 06/18/24 carvedilol 6.25 mg tablet 6.25 mg PO BID #180 tabs 06/18/24 losartan 100 mg tablet 100 mg PO DAILY #90 tabs 06/18/24 Allergies Allergy/AdvReac Type Severity Reaction Status Date / Time amoxicillin AdvReac Severe Nausea, Verified 07/09/24 18:47 vomiting azithromycin AdvReac Severe Nausea, Verified 07/09/24 18:47 vomiting cefdinir AdvReac Severe Nausea, Verified 07/09/24 18:47 vomiting oxycodone AdvReac Severe Nausea, Verified 07/09/24 18:47 vomiting Narcotics AdvReac Severe Nausea, Uncoded 07/09/24 18:47 vomiting Review of Systems Review of Systems ROS Unobtainable: All systems reviewed & are unremarkable except as noted in HPI and below Patient History Medical History Protein calorie malnutrition Dyslipidemia COVID-19 virus infection Anxiety Microalbuminuria History of oral cancer Cancer of mandible (~01/2017) DDD (degenerative disc disease), lumbar (Unknown) Low back pain (Unknown) Irritable bowel syndrome (Unknown) Hypertension (Unknown) Hx of pulmonary embolus (03/2017) History of pulmonary embolus (PE) Squamous cell carcinoma of mandible Gastroesophageal reflux disease (06/24/15) Essential hypertension (10/12/10) Surgical History Hx of ankle fusion (07/11/19) History of mandibular surgery (02/2017) Status post cholecystectomy Family History Father Liver disease Mother Pneumonia Sister Cancer Family/Other No problems noted. Social History household members: spouse Smoking Status: Never smoker second hand exposure: No alcohol intake: current substance use type: does not use Smoking Status: Never smoker alcohol intake frequency: a few times a week Alcohol type: wine Exam Narrative Exam Narrative: GEN: Patient appears in mild distress. HEAD: Patient has an abrasion a small punctate puncture over the left parietal region no active bleeding, no raccoon/Stark sign. NECK: Nontender, painless range of motion, trachea midline Negative Nexus criteria, no midline line tenderness, distracting injury, altered mental status, neuro deficit, recent EtOH. EYES: PERRLA, EOMI ENT: External inspection normal, trachea is midline, Nares are clear, no septal hematoma, no dental or oral injury, airway is normal and with normal occlusion, No bony tenderness RESP: Chest is nontender and has symmetric movement, no ecchymosis, breath sounds are normal no crackles, wheezes or rales CVS: Heart sounds are normal, no murmur noted, No JVD. ABG/GI: Nontender, soft, normal bowel sounds, no distention, no organomegaly NEURO: Oriented AOx3, neuro is grossly intact, sensation and motor is normal all 4 extremities moving, cranial nerves II through XII are intact, GCS is 15 PSYCH: Normal mood and affect SKIN: Intact, warm and dry, no crepitus and without decubitus BACK: No CVA tenderness, no vertebral tenderness, no step-off's, no crepitus EXT: Atraumatic, hips are nontender, normal range of motion. Initial Vital Signs Initial Vital Signs: Vital Signs Temperature 97.7 F 07/09/24 18:39 Pulse Rate 81 07/09/24 18:39 Respiratory Rate 16 07/09/24 18:39 Blood Pressure 153/77 H 07/09/24 18:39 Pulse Oximetry 93 07/09/24 18:39 Oxygen Delivery Method Room Air 07/09/24 18:39 Course Orders Ordered: ED Orders 07/09/24 18:52 CT head/brain wo con Stat Discontinued Medications Diphtheria/Tetanus/Acell Pertussis (Tet,Diph,Pertuss(Acell),Vac/Pf 0.5 Ml Syringe) 0.5 ml IM .ONCE ONE Stop: 07/09/24 21:58 Last Admin: 07/09/24 21:58 Dose: 0.5 ml Documented By: NEVA Lidocaine/Prilocaine (Lidocaine/Prilocaine 5 Gm) 5 gm TOP NOW ONE Stop: 07/09/24 21:46 Last Admin: 07/09/24 21:57 Dose: 5 gm Documented By: NEVA Vital Signs Vital signs: Vital Signs - 8 hr 07/09/24 18:39 07/09/24 22:57 Temperature 97.7 F Pulse Rate 81 72 Respiratory Rate 16 18 Blood Pressure 153/77 H 167/78 H Pulse Oximetry 93 95 Oxygen Delivery Method Room Air Room Air MDM - Head Injury Imaging Data CT scan - head: Radiologist's Impression: Lexy Maharaj??79??F??1945 ? Allergy/Adv: amoxicillin, azithromycin, cefdinir, oxycodone, [Narcotics] (More??) Close Head CT (Signed) Bill Raygoza - 07/09/[address] (Signed) Marii Matthews - 04/19/24 Chest X-Ray (Signed) Bill Raygoza - 04/10/24 Mammogram Screening (Signed) Jovany Logan - 02/29/24 Bone Densitometry (Signed) Zackery Collins - 02/29/[address] (Signed) Zackery Collins - 02/29/24 Lumbar Spine MRI (Signed) Radha Willett - 11/21/23 Chest X-Ray (Signed) Natasha Hitchcock - 07/31/[address] (Signed) Ino Loco - 03/05/23 Chest CTA (Signed) Humberto Newman - 06/21/22 Chest X-Ray (Signed) Humberto Newman - 06/21/22 Ankle X-Ray (Signed) Bill Raygoza - 06/09/22 Mammogram Screening (Signed) Srini Christianson - 06/01/[address] (Signed) Cedric Blevins - 04/11/22 Echocardiogram Ultrasound (Signed) Peter Navarro - 02/27/22 Bone Densitometry 06/21/21 DEXA Result 06/21/21 Mammogram Screening (Signed) Adán Medina - 05/17/21 Mammogram Screening (Signed) Radha Willett - 02/11/20 Ankle X-Ray (Signed) Jovany Logan - 07/11/19 Ankle MRI (Signed) Shaka Mayorga - 01/21/19 Mammogram Screening (Signed) Adán Medina - 12/11/18 Chest X-Ray (Signed) Belen Colon - 10/25/18 Ankle X-Ray (Signed) lR Sommer - 12/13/17 [place] [address] CT Scan Report Signed Patient: Lexy Maharaj MR#: [id number] : 1945 Acct:[id number] Age/Sex: 79 / F Date of Service: 07/09/24 Loc: ED Accession Number: [id number] Procedure: CT head/brain wo con Ordering Provider: Sherly Higgins D.O. PROCEDURE: CT HEAD/BRAIN WO CON INDICATIONS: dizziness, hit head. No LOC, No thinners TECHNIQUE: Noncontrast 4.5 mm thick angled axial sections acquired from the foramen magnum to the vertex, with coronal and sagittal reformats. For radiation dose reduction, the following was used: automated exposure control, adjustment of mA and/or kV according to patient size. COMPARISON: None. FINDINGS: Image quality: Diagnostic. CSF spaces: Basal cisterns are patent. No extra-axial fluid collections. The ventricles are symmetric in size and shape. Brain: No acute intracranial hemorrhage or mass effect. There is cerebral volume loss for age, with resultant ventricular and sulcal prominence. There are periventricular and deep white matter chronic small vessel ischemic changes. There is intracranial internal carotid artery atherosclerosis. Skull and face: Mild right temporoparietal scalp edema and trace subcutaneous gas. Calvarium and visualized facial bones appear intact, without suspicious lesions. Sinuses: Visualized sinuses and mastoids are clear. IMPRESSION: No acute intracranial pathology. Approved by: Bill Raygoza M.D. on 07/09/2024 at 19:32 MDM Narrative Medical decision making narrative: Head CT shows no acute change. Discussed with patient she does not wish for additional workup at this time for her dizziness, we did discuss obtaining labs, EKG and chest x-ray. After evaluation discussed with patient there is more of an abrasion with a small punctate laceration but no longer bleeding after discussion patient defers kaleb I do not think that it requires it that is quite small and I can not make it bleed or really gapped the area. Discussed return precautions all questions answered. Discharge Plan Departure Patient Disposition: Home Clinical Impression: Laceration of scalp Instructions: DI for Closed Head Injury Activity Restrictions/Additional Instructions: Wound Care: Keep wound(s) clean and dry. Wash daily with soap and water only. Do not use over the counter products (alcohol or peroxide)on the wounds unless instructed by a physician. If wound condition worsens (increased/expanding redness, developing fluid blisters, or worsening pain), either contact your doctor for an urgent re- assessment , or return to the Emergency Department. Return if fever greater than 100.4 Fahrenheit, increased swelling, increasing pain or worsening symptoms such as increased discharge or spreading redness, severe headaches, confusion, nausea or vomiting, new neck or back pain, new numbness tingling or weakness, persistent dizziness or other new or concerning changes. Prescriptions: No Action lorazepam 0.5 mg tablet 0.5 mg PO QDAYP PRN (Reason: anxiety) Qty: 30 1RF amlodipine [Norvasc] 5 mg tablet 5 mg PO QDAY Qty: 90 3RF carvedilol 6.25 mg tablet 6.25 mg PO BID Qty: 180 3RF Rx Instructions: must administer with a meal/food losartan 100 mg tablet 100 mg PO DAILY Qty: 90 3RF ferrous gluconate 324 mg (37.5 mg iron) tablet 324 mg PO DAILY omeprazole magnesium [Acid [employer] (omeprazole)] 20 mg capsule,delayed release(DR/EC) 20 mg PO DAILY Referrals: Travis Brennan ARNP [Primary Care Provider] - Stand Alone Forms: Patient Portal/API/Survey
[2024-07-09] MEDS: LIDOCAINE/PRILOCAINE 5 GM TOP (21:57)
[2024-07-09] MEDS: TET,DIPH,PERTUSS(ACELL),VAC/PF 0.5 ML SYRINGE IM (21:58)
[2024-07-09 22:57] VITALS: BP 167/78; PULSE 72; RESP 18; O2SAT 95
--- NOTE | 2024-07-09 22:57 | PC.NURSE ---
Upon further inspection of head after wound cleansing laceration appears to be only 1cm in length. It is not bleeding.
== END 2024-07-09 22:59 | disposition home or self-care (01) ==
PROVIDERS: Emergency Provider Emergency Medicine; PCP Registered Nurse Diabetes Educator
DX: S01.01XA Laceration without foreign body of scalp, initial encounter (principal); R42 Dizziness and giddiness; K21.9 Gastro-esophageal reflux disease without esophagitis; W18.30XA Fall on same level, unspecified, initial encounter; Z23 Encounter for immunization
CPT/HCPCS: 70450; 90471; 99283; 99284; 90715

== ENCOUNTER → 2024-10-03 12:03 | Outpatient (CLI) | payer MEDICARE, SELFPAY ==
[2022-04-13 10:41] VITALS: BMI 18.9
== END ==
LOC: LAB 12:04
PROVIDERS: PCP Registered Nurse Diabetes Educator; Referring Provider Internal Medicine Pulmonary Disease; Visit Provider Internal Medicine Pulmonary Disease
DX: J47.9 Bronchiectasis, uncomplicated (principal)
CPT/HCPCS: 87116; 87206

== ENCOUNTER → 2024-10-05 09:46 | Outpatient (CLI) | payer MEDICARE, SELFPAY ==
[2022-04-13 10:41] VITALS: BMI 18.9
--- NOTE | 2024-10-05 09:48 | DI.CT.S_ITS ---
PROCEDURE: CT CHEST WO CON INDICATIONS: f/u LLL consolidation, MORRIS, weight loss TECHNIQUE: Noncontrast 5 mm thick sections acquired from the pulmonary apices to the posterior costophrenic angles. 1 mm lung window, 5 mm thick coronal and sagittal and 7 mm axial MIP reformats were then acquired. For radiation dose reduction, the following was used: automated exposure control, adjustment of mA and/or kV according to patient size. COMPARISON: [facility], CT, CT CHEST W CON, 04/19/2024, 13:10. [facility], CT, CT CHEST WO CON, 03/05/2023, 9:29. FINDINGS: Image quality: Diagnostic. Lower Neck: No enlarged lymph nodes. Thyroid: Normal CT appearance. Axillae: No enlarged lymph nodes. Chest Wall: Unremarkable. Bones: Focal disc and endplate degeneration on the left at the L1-2 level. Otherwise normal osseous structures. Lungs and Pleura: Bilateral upper and lower lobe bronchiectasis bronchial wall thickening, and several areas of scattered mucus plugging. Postobstructive subpleural opacities at the peripheral nodularity, predominantly in the left lower lobe, but present bilaterally. Apical subpleural cystic changes, left greater than right. Overall extent has minimally decreased in both lower lobes compared to the most recent prior study. Overall findings are quite similar. No new pleural effusion. Heart: Heart size is normal. No pericardial effusion. Thoracic Vessels: The aorta and pulmonary arteries demonstrate normal size. Heavy arch calcification. Mediastinum and Sofía: No enlarged lymph nodes. Esophagus: No wall thickening. No hiatal hernia. Upper Abdomen: Cholecystectomy changes. Visible portions of upper abdominal organs are otherwise normal. IMPRESSION: Slight improvement in findings of indolent infection/inflammation consistent with history of MA I, compared to the most recent prior study, but progressed compared to 03/05/23. Dictated by: Tracy Lopez M.D. on 10/05/2024 at 17:11 Approved by: Tracy Lopez M.D. on 10/05/2024 at 17:20
== END ==
PROVIDERS: PCP Registered Nurse Diabetes Educator; Referring Provider Registered Nurse Diabetes Educator; Visit Provider Registered Nurse Diabetes Educator
DX: R63.4 Abnormal weight loss (principal); R05.3 Chronic cough; A31.0 Pulmonary mycobacterial infection
CPT/HCPCS: 71250

== ENCOUNTER → 2024-10-07 06:56 | Outpatient (CLI) | payer MEDICARE, SELFPAY ==
[2022-04-13 10:41] VITALS: BMI 18.9
== END ==
PROVIDERS: PCP Registered Nurse Diabetes Educator; Referring Provider Internal Medicine Pulmonary Disease; Visit Provider Internal Medicine Pulmonary Disease
DX: J47.9 Bronchiectasis, uncomplicated (principal)
CPT/HCPCS: 87116; 87206

== ENCOUNTER → 2024-10-14 11:16 | Outpatient (CLI) | payer MEDICARE, SELFPAY ==
[2022-04-13 10:41] VITALS: BMI 18.9
== END ==
LOC: LAB 11:17
PROVIDERS: PCP Registered Nurse Diabetes Educator; Referring Provider Internal Medicine Pulmonary Disease; Visit Provider Internal Medicine Pulmonary Disease
DX: J47.9 Bronchiectasis, uncomplicated (principal)
CPT/HCPCS: 87116; 87206

== ENCOUNTER → 2024-11-14 12:09 | Outpatient (CLI) | payer MEDICARE, SELFPAY ==
[2022-04-13 10:41] VITALS: BMI 18.9
[2024-11-14 12:38] LABS: Add Manual Diff / Slide Review NO; Basophils Absolute Auto 0 /uL (0-100); Basophils Percent Auto 0.5 % (0-2); Eosinophils Absolute Auto 100 /uL (0-450); Eosinophils Percent Auto 1.6 % (2-4); Hemoglobin 12.5 g/dL (12.0-16.0); Lymphocytes Absolute Auto 1700 /uL (1100-4500); Lymphocytes Percent Auto 17.9 % (25-40); Mean Corpuscular HGB Conc 33.7 % (30-36); Mean Corpuscular Hemoglobin 30.7 PG (26-34); Monocytes Absolute Auto 700 /uL (0-900); Monocytes Percent Auto 7.3 % (3-14); Neutrophils Absolute Auto 6700 /uL (1500-7000); Neutrophils Percent Auto 72.7 % (50-75); Platelet Count 296 X10^3/uL (150-400); Red Blood Cell Count 4.07 X10^6/uL (4.0-5.2); Red Cell Distribution Width 12.9 % (11.6-14.8); White Blood Cell Count 9.3 X10^3/uL (4.5-11.0)
[2024-11-14 12:58] LABS: Alanine Aminotransferase 15 IU/L (<35); Albumin 4.2 g/dL (3.5-5.0); Albumin Globulin Ratio 1.1 (1.0-2.8); Alkaline Phosphatase 67 U/L (38-126); Aspartate Aminotransferase 24 IU/L (14-36); Bilirubin Total 0.7 mg/dL (0.2-1.3); Blood Urea Nitrogen 18 mg/dL (7-17); Calcium 9.8 mg/dL (8.4-10.2); Carbon Dioxide 29 mmol/L (22-32); Chloride 99 mmol/L (98-107); Estimated Glomerular Filt Rate > 60 mL/min (>60); Glucose 127 mg/dL (70-99); HEMOLYSIS < 15 (0-50); Lactate Dehydrogenase 179 U/L (120-246); Potassium 4.2 mmol/L (3.4-5.1); Sodium 137 mmol/L (137-145); Total Protein 8.2 g/dL (6.3-8.2)
[2024-11-17 14:11] LABS: Albumin 3.1 g/dL (2.9-4.4); Alpha-1-Globulin 0.3 g/dL (0.0-0.4); Alpha-2-Globulin 0.9 g/dL (0.4-1.0); Free Kappa Lt Chains, Serum 43.1 mg/L (3.3-19.4); Free Lambda Lt Chains,Serum 27.8 mg/L (5.7-26.3); Gamma Globulin 2.2 g/dL (0.4-1.8); Globulin Total 4.6 g/dL (2.2-3.9); Immunoglobulin A, Serum 454 mg/dL (64-422); Immunoglobulin G,Serum 2095 mg/dL (586-1602); Immunoglobulin M, Serum 87 mg/dL (26-217); Protein, Total 7.7 g/dL (6.0-8.5)
[2024-11-18 14:36] LABS: Beta-2-Microglobulin 2.4 mg/L (0.6-2.4)
== END ==
PROVIDERS: PCP Registered Nurse Diabetes Educator; Referring Provider Internal Medicine Hematology & Oncology; Visit Provider Internal Medicine Hematology & Oncology
DX: D47.2 Monoclonal gammopathy (principal); D63.8 Anemia in other chronic diseases classified elsewhere
CPT/HCPCS: 36415; 80053; 82232; 82784; 83615; 83883; 84155; 84165; 85025; 86334

== ENCOUNTER → 2024-12-05 09:09 | Outpatient (CLI) | payer MEDICARE, SELFPAY ==
[2022-04-13 10:41] VITALS: BMI 18.9
== END ==
LOC: LAB 09:11
PROVIDERS: PCP Registered Nurse Diabetes Educator; Referring Provider Registered Nurse Diabetes Educator; Visit Provider Internal Medicine Infectious Disease
DX: A31.0 Pulmonary mycobacterial infection (principal); J47.9 Bronchiectasis, uncomplicated
CPT/HCPCS: 87116; 87206

== ENCOUNTER → 2024-12-11 07:44 | Outpatient (CLI) | payer MEDICARE, SELFPAY ==
[2022-04-13 10:41] VITALS: BMI 18.9
--- NOTE | 2024-12-11 07:46 | DI.CT.S_ITS ---
PROCEDURE: CT CHEST WO CON INDICATIONS: bronchiectasis w/o complication TECHNIQUE: Noncontrast 5 mm thick sections acquired from the pulmonary apices to the posterior costophrenic angles. 1 mm lung window, 5 mm thick coronal and sagittal and 7 mm axial MIP reformats were then acquired. For radiation dose reduction, the following was used: automated exposure control, adjustment of mA and/or kV according to patient size. COMPARISON: [facility], CT, CT CHEST WO CON, 10/05/2024, 9:54. FINDINGS: Image quality: Diagnostic. Lower Neck: No enlarged lymph nodes. Thyroid: No thyroid nodules which require sonographic follow up, per consensus guidelines. Axillae: No enlarged lymph nodes. Chest Wall: Unremarkable. Bones: Unremarkable. Lungs and Pleura: No pneumothorax or pleural effusions. Waxing and waning consolidation of the lungs, improved in the lateral right upper lobe, worsened in the dependent upper lobes. Volume loss and bronchiectasis are noted within the lingula and right middle lobe. Left apical bleb and bulla, diffuse bronchiectasis and scattered regions of tree-in-bud nodularity are similar to prior. Heart: Heart size is normal. No pericardial effusion. Thoracic Vessels: The aorta and pulmonary arteries demonstrate normal size. Mediastinum and Sofía: No enlarged lymph nodes. Esophagus: No wall thickening. No hiatal hernia. Upper Abdomen: Visualized upper abdomen solid organs and bowel loops appear normal. IMPRESSION: Waxing and waning endobronchial infection most consistent with MORRIS. Dictated by: Zackery Collins M.D. on 12/11/2024 at 11:51 Approved by: Zackery Collins M.D. on 12/11/2024 at 12:00
== END ==
PROVIDERS: PCP Registered Nurse Diabetes Educator; Referring Provider Internal Medicine Infectious Disease; Visit Provider Internal Medicine Infectious Disease
DX: J47.9 Bronchiectasis, uncomplicated (principal); A31.0 Pulmonary mycobacterial infection
CPT/HCPCS: 71250; 87116; 87206

== ENCOUNTER → 2024-12-17 10:09 | Outpatient (CLI) | payer MEDICARE, SELFPAY ==
[2022-04-13 10:41] VITALS: BMI 18.9
== END ==
PROVIDERS: PCP Registered Nurse Diabetes Educator; Referring Provider Internal Medicine Infectious Disease; Visit Provider Internal Medicine Infectious Disease
DX: J47.9 Bronchiectasis, uncomplicated (principal); A31.0 Pulmonary mycobacterial infection
CPT/HCPCS: 87116; 87206

== ENCOUNTER → 2025-04-08 11:58 | Outpatient (CLI) | payer MEDICARE, SELFPAY ==
[2022-04-13 10:41] VITALS: BMI 18.9
[2025-04-08 12:44] LABS: Add Manual Diff / Slide Review NO; Hematocrit 35.2 % (36-46); Hemoglobin 11.7 g/dL (12.0-16.0); Lymphocytes Absolute Auto 1700 /uL (1100-4500); Mean Corpuscular HGB Conc 33.3 % (30-36); Mean Corpuscular Hemoglobin 29.3 PG (26-34); Mean Corpuscular Volume 88.2 fL (80-100); Platelet Count 304 X10^3/uL (150-400)
[2025-04-08 13:14] LABS: Alanine Aminotransferase 11 IU/L (<35); Albumin 4.1 g/dL (3.5-5.0); Albumin Globulin Ratio 1.0 (1.0-2.8); Alkaline Phosphatase 74 U/L (38-126); Blood Urea Nitrogen 18 mg/dL (7-17); Calcium 9.8 mg/dL (8.4-10.2); Carbon Dioxide 27 mmol/L (22-32); Chloride 98 mmol/L (98-107); Estimated Glomerular Filt Rate > 60 mL/min (>60); Globulin 4.1 g/dL (1.7-4.1); Glucose 114 mg/dL (70-99); HEMOLYSIS < 15 (0-50); Potassium 4.3 mmol/L (3.4-5.1); Sodium 137 mmol/L (137-145); Total Protein 8.2 g/dL (6.3-8.2)
[2025-04-08 13:58] LABS: TSH w/ Reflex to FT4 3.20 uIU/mL (0.47-4.68)
== END ==
PROVIDERS: PCP Registered Nurse Diabetes Educator; Referring Provider Internal Medicine Infectious Disease; Visit Provider Internal Medicine Infectious Disease
DX: A31.0 Pulmonary mycobacterial infection (principal); R63.4 Abnormal weight loss
CPT/HCPCS: 36415; 80053; 84443; 85025

== ENCOUNTER → 2025-05-14 14:38 | Outpatient (CLI) | payer MEDICARE, SELFPAY ==
[2022-04-13 10:41] VITALS: BMI 18.9
[2025-05-14 15:50] LABS: Add Manual Diff / Slide Review NO; Hematocrit 34.3 % (36-46); Hemoglobin 11.7 g/dL (12.0-16.0); Lymphocytes Absolute Auto 1600 /uL (1100-4500); Mean Corpuscular HGB Conc 34.1 % (30-36); Mean Corpuscular Hemoglobin 29.6 PG (26-34); Mean Corpuscular Volume 86.8 fL (80-100); Platelet Count 284 X10^3/uL (150-400)
[2025-05-14 16:55] LABS: Alanine Aminotransferase 14 IU/L (<35); Albumin 4.2 g/dL (3.5-5.0); Albumin Globulin Ratio 1.0 (1.0-2.8); Alkaline Phosphatase 73 U/L (38-126); Blood Urea Nitrogen 17 mg/dL (7-17); Calcium 9.9 mg/dL (8.4-10.2); Carbon Dioxide 24 mmol/L (22-32); Chloride 102 mmol/L (98-107); Estimated Glomerular Filt Rate > 60 mL/min (>60); Globulin 4.4 g/dL (1.7-4.1); Glucose 99 mg/dL (70-99); HEMOLYSIS < 15 (0-50); Potassium 4.2 mmol/L (3.4-5.1); Sodium 137 mmol/L (137-145); Total Protein 8.6 g/dL (6.3-8.2)
== END ==
PROVIDERS: PCP Registered Nurse Diabetes Educator; Referring Provider Registered Nurse Diabetes Educator
DX: D47.2 Monoclonal gammopathy (principal)
CPT/HCPCS: 36415; 80053; 82232; 82784; 83883; 84155; 84165; 85025; 86334